=== PATIENT | female | born 1940 | race Caucasian/White ===

== ENCOUNTER 2020-12-19 16:03 | Emergency (ER) | payer MEDICARE, SELFPAY ==
--- NOTE | 2020-12-19 16:08 | ED.GENADULT ---
HPI - General Adult General Chief complaint: Altered Mental Status Stated complaint: elevated blood sugar/confused Time Seen by Provider: 12/19/20 16:08 Source: patient, family and RN notes reviewed History of Present Illness HPI narrative: Patient is 80-year-old female who presents the urgent care with her son with complaints of increased confusion and elevated blood sugars. Son states that her last blood sugar check was 173 which is high for her . States that her morning check is normally in the 120 range. States that she was slightly more confused this morning than her normal self however patient does have a history of dementia. States that she may look a little bit more pale than normal today . States that she has had a decrease in fluid intake and has not eaten since breakfast this morning. Also reports of 2 episodes of vomiting that occurred earlier in the day. Patient is currently denying of any pains. Son denies of any complaints of pain from the patient. No other acute complaints. Son aware of the plan of care. Some parts of this dictation were generated by voice recognition software and may contain typographical and/or grammatical inaccuracies. Related Data Home Medications Medication Instructions Recorded Confirmed carbidopa-levodopa 25 - 100 tablet PO TID 12/19/20 12/19/20 donepezil 5 mg PO DAILY 12/19/20 12/19/20 metformin 1,000 mg PO BID 12/19/20 12/19/20 propranolol 60 mg PO DAILY 12/19/20 12/19/20 Allergies Allergy/AdvReac Type Severity Reaction Status Date / Time No Known Allergies Allergy Mild Verified 12/19/20 18:46 Review of Systems Review of Systems: CONSTITUTIONAL: Denies fever, chills, or sweats. EYES: Denies visual changes, redness, or discharge. ENT: Denies rhinorrhea, congestion, sore throat, or otalgia. CARDIOVASCULAR: Denies chest pain, palpitations, or edema. RESPIRATORY: Denies cough or dyspnea. GASTROINTESTINAL: Reports of decreased appetite and 2 episodes of vomiting GENITOURINARY: Denies dysuria or hematuria. SKIN: Denies rash or itching. MUSCULOSKELETAL: Denies back pain, joint pain, or myalgia. NEUROLOGIC: Denies headache, numbness, or weakness. Reports of increased confusion All other systems reviewed are negative, except as documented in HPI. PMFSH Comments At the time of my signature, I reviewed and agree with the nursing past medical, surgical, social, and family history. There is no relevant family history pertinent to the patient complaint. Exam Narrative: GENERAL: This is a well-nourished, well-developed patient, very flat affect HEAD: normocephalic, atraumatic. EYES: PERRL. Sclera clear/white. Vision is grossly intact. EARS: External ears normal NOSE: External nose normal with no obvious nasal discharge, nares without redness, no rhinorrhea. THROAT: Mucous membranes moist NECK: Neck supple CARDIOVASCULAR: Regular rate and rhythm RESPIRATORY: Clear to auscultation. Breath sounds equal bilaterally. No wheezes, rales, or rhonchi. GASTROINTESTINAL: Abdomen soft, mild distention. Bowel sounds are active. Guarding with palpation to the left upper quadrant SKIN: warm, intact with no suspicious lesions or rash, good texture and turgor. NEURO: awake, alert, and oriented to person, place and time. There were no obvious focal neurologic abnormalities. EXTREMITIES: No clubbing, cyanosis, or edema. No joint tenderness, effusion, or edema noted. Course Vital Signs Vital signs: Vital Signs Temperature 96.8 F L 12/19/20 16:37 Pulse Rate 54 L 12/19/20 16:37 Respiratory Rate 16 12/19/20 16:37 Blood Pressure 120/51 L 12/19/20 16:37 Pulse Oximetry 99 12/19/20 16:37 Temperature 96.8 F L 12/19/20 16:37 Pulse Rate 54 L 12/19/20 16:37 Respiratory Rate 16 12/19/20 16:37 Blood Pressure 120/51 L 12/19/20 16:37 Pulse Oximetry 99 12/19/20 16:37 Reviewed Transfer Transfered to: [place] Transportation: Other (Private car) Transfer rationale: Altered
[2020-12-19 16:18] LABS: Glucose Point of Care 172 mg/dl (65-105)
[2020-12-19 16:37] VITALS: BP 120/51; PULSE 54; RESP 16; TEMP 36; O2SAT 99
== END 2020-12-19 16:43 | disposition short-term general hospital (02) ==
PROVIDERS: Emergency Provider Nurse Practitioner Family; PCP Internal Medicine
DX: R41.82 Altered mental status, unspecified (principal); E11.9 Type 2 diabetes mellitus without complications; F03.90 Unspecified dementia, unspecified severity, without behavioral disturbance, psychotic disturbance, mood disturbance, and anxiety
CPT/HCPCS: 82948; 99203; G0463

== ENCOUNTER 2020-12-19 17:07 | Inpatient (IN) | payer MEDICARE, SELFPAY ==
[2020-12-19] VITALS (37 sets, daily range): BP systolic 97–166; BP diastolic 26–93; PULSE 74–98; RESP 12–27; TEMP 37.3; O2SAT 71–100
--- NOTE | ~2020-12-19 | XR_ITS ---
XR ERCP DATE: 12/22/2020 15:08 INDICATION: Cholelithiasis, choledocholithiasis TECHNIQUE: 4 spot C-arm images during ERCP procedure .spot C-arm images 134.4 seconds fluoroscopy sri e 28.48 mGy COMPARISON: 12/19/2020 CT abdomen pelvis FINDINGS: There are multiple filling defects in the distal common bile duct consistent with choledoch olithiasis, with dilatation of the common bile duct. There is minimal contrast material reaching the duodenum due to distal common bile duct obstruction as a result of the choledocholithiasis. IMPRESSION: Choledocholithiasis with distal common bile duct high-grade obstruction Reviewed, dictated and finalized at [facility]. Reviewed, dictated and finalized at [facility]. IMPRESSION: Choledocholithiasis with distal common bile duct high-grade obstruc tion
--- NOTE | ~2020-12-19 | XR_ITS ---
EXAMINATION: XR cholangiogram surg 1st inj DATE: 12/23/2020 16:29 INDICATION: Cholelithiasis. TECHNIQUE: 140 fluoroscopic images of the right upper quadrant were obtained during intraoperative ch olangiography performed by the surgeon. I was not present in the operating room. Fluoroscopy exposure time was 26 seconds. COMPARISON: ERCP 12/22/2020, CT abdomen and pelvis 12/19/2020 FINDINGS: The catheter is in the cystic duct. Initial images demonstrate an obstruction of the distal common bile duct. Subsequent images demonstrate relief of the obstruction with passage of contrast t o the duodenum. The common bile duct demonstrate undulation of the dexter with a thin intraluminal fla p, likely secondary to inflammation, adherent sludge, and surgical change from ERCP. An elongated, ir regularly-shaped filling defect in the distal common hepatic duct changes shape and is likely sludge. IMPRESSION: 1. No specific evidence of residual choledocholithiasis. Reviewed, dictated and finalized at [facility].
--- NOTE | ~2020-12-19 | CT_ITS ---
EXAMINATION: CT abdomen pelvis w con DATE: 12/19/2020 20:21 INDICATION: Nausea and vomiting TECHNIQUE: Computed tomography (CT) of the abdomen and pelvis was performed with 100 mL Omnipaque-350 intravenous contrast. Automated exposure control and iterative reconstruction technique were employe d. The dose-length product was 717.82 mGy-cm. COMPARISON: None FINDINGS: Respiratory motion and minimal dependent atelectasis at the lung bases. Heart size is normal. Atheros clerotic coronary artery calcific location. No pericardial or pleural effusion. Small sliding-type hi atal hernia. A few peripherally calcified gallstones in the decompressed gallbladder which is without wall thickening or pericholecystic inflammatory change to suggest acute cholecystitis. The common bi le duct is however dilated to 9 mm and there is diffuse mild intrahepatic biliary ductal dilation. Th ere appears be a additional likely obstructing small partially calcified gallstone at the ampulla of the common bile duct. Spleen, pancreas, bilateral adrenal glands are normal. Small region of cortical scarring at the interpolar region of the left kidney. 8 mm right renal cyst. Bowels are normal. The appendix is not visualized. No pericecal inflammatory change to suggest acute appendicitis. Bladder i s normal. The uterus is not identified and has likely been surgically resected. No free intraperitone al gas or fluid. No pathologically enlarged abdominal or pelvic lymphadenopathy. Severe lumbar spondy losis. There are bridging osteophytes at multiple levels in the lower thoracic spine, consistent with diffuse idiopathic skeletal hyperostosis (DISH). IMPRESSION: 1. Cholelithiasis/choledocholithiasis with small obstructing stone at the distal common bile duct res ulting in mild intra and extra hepatic biliary ductal dilation. Correlate with liver function tests a nd consider ERCP. 2. Small sliding-type hiatal hernia. Reviewed, dictated and finalized at location [facility]. IMPRESSION: 1. Cholelithiasis/choledocholithiasis with small obstructing stone at the dista l common bile duct resulting in mild intra and extra hepatic biliary ductal dil ation. Correlate with liver function tests and consider ERCP. 2. Small sliding-type hiatal hernia.
--- NOTE | 2020-12-19 17:51 | ECG_ITS ---
Measurements Intervals [place] Rate: 79 P: SC: 0 QRS: 36 QRSD: 82 T: 123 QT: 384 QTc: 441 Interpretive Statements PROBABLY ATRIAL FIBRILLATION (BASELINE ARTIFACT) DELAYED PRECORDIAL R/S TRANSITION BASELINE ARTIFACT- I, II, III, AVR, AVL, AVF, V1-V6 ABNORMAL ECG Electronically Signed On 12-19-2020 20:20:31 CDT by Marco Palumbo D.O.
[2020-12-19 19:43] LABS: Basophils Percent Auto 0.1 % (0.2-1.2); Hematocrit 44.6 % (37.0-47.0); Hemoglobin 14.7 g/dL (12.0-15.0); Immature Granulocyte Absolute 0.03 K/mm3 (0.00-0.031); Immature Granulocyte Percent A 0.4 % (0-0.5); Lymphocytes Absolute Auto 0.25 K/mm3 (0.9-3.2); Lymphocytes Percent Auto 3.2 % (18.3-44.2); Mean Corpuscular Hemoglobin 30.1 pg (26-34); Mean Corpuscular Volume 91.2 fl (80-100); Mean Platelet Volume 10.2 fl (7.4-10.4); Monocytes Absolute Auto 0.2 K/mm3 (0.1-0.6); Monocytes Percent Auto 1.9 % (2.6-8.5); Neutrophils Absolute Auto 7.4 K/mm3 (1.3-6.7); Neutrophils Percent Auto 94.4 % (45.5-73.1); Platelet Count Result 170 k/mm3 (150-375); Red Blood Count 4.89 M/mm3 (4.2-5.4); Red Cell Distribution Width 12.8 % (11.5-14.5); White Blood Count 7.8 K/mm3 (4.5-10.0)
[2020-12-19] MEDS: SODIUM CHLORIDE 0.9% IV 500 ML 999 ML IV CONT (19:49)
[2020-12-19 19:57] LABS: Alanine Aminotransferase 327 U/L (4-35); Albumin Level 4.5 g/dL (3.5-5.1); Alkaline Phosphatase 75 U/L (38-126); Anion Gap 8 mmol/L (8-16); Bilirubin,Total 3.9 mg/dL (0.2-1.3); Blood Urea Nitrogen 16 mg/dL (7-17); Calcium 9.8 mg/dL (8.4-10.2); Carbon Dioxide 29 mmol/L (22-30); Chloride 102 mmol/L (98-107); Estimated CRCL calculation 56 ml/min; Estimated Glomerular Filt Rate > 60; Glucose 170 mg/dL (65-110); Potassium 4.8 mmol/L (3.4-5.0); Sodium 139 mmol/L (137-145)
[2020-12-19 20:02] LABS: Lactic Acid Reflex 3.5 mmol/L (0.7-2.1)
--- NOTE | 2020-12-19 20:11 | PC.NURSE ---
Pt off floor to radiology
[2020-12-19 20:13] LABS: Lipase 27 U/L (23-300)
--- NOTE | 2020-12-19 20:13 | ED.AMS ---
HPI - Altered Mental Status General Chief Complaint: Altered Mental Status Stated Complaint: altered mental status, vomiting Time Seen by Provider: 12/19/20 18:35 History of Present Illness HPI narrative: History primary team from family. 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 However this afternoon she seemed a little bit more altered and slow to respond to questions so they brought her in for evaluation. From reports she is normally alert and oriented to her self and recognizes family. Reports she still able to do that but just appears slower to recognize them. Family has not noted her to be in any pain or discomfort. Related Data Home Medications Medication Instructions Recorded Confirmed carbidopa-levodopa 25 - 100 tablet PO TID 12/19/20 12/19/20 donepezil 5 mg PO DAILY 12/19/20 12/19/20 metformin 1,000 mg PO BID 12/19/20 12/19/20 propranolol 60 mg PO DAILY 12/19/20 12/19/20 Allergies Allergy/AdvReac Type Severity Reaction Status Date / Time No Known Allergies Allergy Mild Verified 12/19/20 18:46 Review of Systems Review of Systems: ROS unobtainable: Yes unobtainable due to mental status Exam Narrative: GENERAL: Well-appearing, well-nourished, and in no acute distress. HEAD: Normocephalic, atraumatic. EYES: PERRLA and EOMI. ENT: Nares clear, no rhinorrhea or epistaxis. Mucous membranes moist. NECK: Supple. No masses. No JVD CHEST: Clear to auscultation. No respiratory distress. No wheezes rales or rhonchi HEART: Regular rate and rhythm. No murmur heard. Normal peripheral pulses. ABDOMEN: Soft, nontender, nondistended, normal active bowel sounds. EXTREMITIES: Normal range of motion. No edema. SKIN: Warm, dry, no rash. NEURO: No focal deficits. Alert and oriented to self PSYCH: Normal mood and affect. Course Consultations Consultation #1: Consult placed to surgery and GI given imaging findings and elevated LFT's Vital Signs Vital signs: Vital Signs Pulse Rate 82 12/19/20 18:28 Respiratory Rate 19 12/19/20 18:28 Blood Pressure 108/26 L 12/19/20 18:28 Temperature 37.3 C 12/19/20 18:34 Pulse Rate 93 12/19/20 21:00 Respiratory Rate 21 H 12/19/20 21:00 Blood Pressure 123/65 12/19/20 20:46 Pulse Oximetry 71 L 12/19/20 20:32 MDM - Altered Mental Status MDM Narrative Medical decision making narrative: Patient noted nausea vomiting change in baseline mental status. Patient overall looks well and is resting comfortably there are no appreciable focal areas of pain on abdominal exam her exam and history are limited due to patient's baseline dementia. Labs and imaging obtained notable for elevated LFTs and CT scan concerning for choledocholithiasis Case discussed with Dr. Worrell and Dr. Moore will follow along patient is admitted to hospitalist team for further intervention. Family comfortable with the admission plan Lab Data Result diagrams: 12/19/20 19:28 12/19/20 19:29 Labs: Lab Results 12/19/20 12/19/20 12/19/20 Range/Units 19:28 19:28 19:29 WBC 7.8 (4.5-10.0) K/mm3 RBC 4.89 (4.2-5.4) M/mm3 Hgb 14.7 (12.0-15.0) g/dL Hct 44.6 (37.0-47.0) % MCV 91.2 (80-100) fl MCH 30.1 (26-34) pg MCHC 33.0 (32-36) g/dl RDW 12.8 (11.5-14.5) % Plt Count 170 (150-375) k/mm3 MPV 10.2 (7.4-10.4) fl Immature Gran % (Auto) 0.4 (0-0.5) % Neut % (Auto) 94.4 H (45.5-73.1) % Lymph % (Auto) 3.2 L (18.3-44.2) % [place] % (Auto) 1.9 L (2.6-8.5) % Eos % (Auto) 0.0 (0-4.4) % Baso % (Auto) 0.1 L (0.2-1.2) % Lymph # (Auto) 0.25 L (0.9-3.2) K/mm3 [place] # (Auto) 0.2 (0.1-0.6) K/mm3 Eos # (Auto) 0.0 (0-0.3) K/mm3 Baso # (Auto) 0.0 (0.0-0.1) K/mm3 Abs Immat Gran (auto) 0.03 (0.00-0.031) K/
[2020-12-19 20:28] LABS: Troponin I < 0.012 ng/mL (0.000-0.034)
[2020-12-19 20:54] LABS: Add Urine Microscopic? YES; Appearance Urine Clear (Clear); Bilirubin Urine Negative (Negative); Blood Urine Negative (Negative); Color Urine Yellow (Yellow); Glucose Urine UA Negative (Negative); Ketones Urine Trace mg/dL (Negative); Leukocyte Esterase Ur Negative LEU/UL (Negative); Mucus Urine Rare /lpf; Nitrate Urine Negative (Negative); Protein Urine Negative (Negative); RBC Urine 0-2 /hpf (0-2); Specific Grav Ur 1.028 (1.001-1.035); WBC Urine 0-3 /hpf
[2020-12-19 21:29] LABS: Aspartate Amino Transferase 795 U/L (14-36)
[2020-12-19 22:41] LABS: Reflex Lactic Acid Yes or No Add Lactic
--- NOTE | 2020-12-19 23:35 | PC.NURSE ---
Called lab to add on additional orders
[2020-12-20 00:14] LABS: Prothrombin Time 13.3 Seconds (11.1-14.7)
[2020-12-20 00:15] LABS: Partial Thromboplastin Time 26.2 SECONDS (22.3-36.8)
--- NOTE | 2020-12-20 00:20 | ADMGEN ---
This patient, Rosanne Church, was admitted to Medical Room 344-01. Patient/family oriented to hospital policies and general routines including ID bracelet, bed and alarms, visiting hours, pain management, procedures, bathroom and other care routines, personal items, smoking policy, room service/diet, and visiting hours. Information on how to activate the Rapid Response Team has been discussed. Patient/Family are encouraged to report perceived risks to care and to ask questions if they do not understand what they are told or what they should do.
[2020-12-20 00:27] LABS: Lactic Acid 2.8 mmol/L (0.7-2.1)
[2020-12-20] MEDS: SODIUM CHLORIDE 0.9% IV 1,000 ML 125 ML IV CONT ×3 (00:35→17:22)
[2020-12-20 00:37] VITALS: BP 130/53; PULSE 83; RESP 18; TEMP 36.2; O2SAT 97; BMI 24.3
[2020-12-20 05:25] VITALS: BP 128/46; PULSE 64; RESP 16; TEMP 36.1; O2SAT 97
--- NOTE | 2020-12-20 05:28 | PM.IMHP ---
H&P: HPI History of Present Illness Date/Time: 12/20/20 05:28 Chief Complaint: vomiting confusion Narrative: this is 80-year-old female with past medical history of dementia presented per family with overall decreased appetite over sometime along with an episode of vomiting that started yesterday and was also noted to be altered and slow to respond. With her underlying dementia see normally is alert and oriented to self and recognizes family. She was able to do that for her but however noted to be slower to respond and hence was brought in for evaluation. There is no history of noted abdominal discomforted and the patient. Patient herself is confused and not able to provide any history to me. Most of the history is taken from the medical records family is not present at the time of my evaluation. In the ER C was noted to be in no acute distress with stable vitals. Laboratory evaluation were unremarkable except for lactic acidosis of 3.5 and elevated AST ALT at 795 and 327 respectively a [place] phosphorus and noted to be normal however total bilirubin is elevated at 3.9 she was started on IV hydration in the ER. A CT scan of the abdomen and pelvis was done which showed cholelithiasis and choledocholithiasis with small obstructing stone at the distal common bile duct resulting in mild intra nap extrahepatic biliary duct dilatation. She is admitted for further evaluation and management of this. Gastroenterology has been consulted from the ER and is planned to have an ERCP. General surgery has also been consulted for her cholelithiasis. Review of Systems Review of Systems: ROS unobtainable: Yes unobtainable due to medical condition and unobtainable due to mental status [facility] Family History Family History (Updated 12/20/20 @ 01:17 by Zulema Crespo RN) Other Unknown family medical history Social History Social History Smoking status: Never smoker Alcohol intake: former Drinks per week: 2 Substance use: never Spiritual care concerns: No Meds Home Medications and Allergies Home Medications Medication Instructions Recorded Confirmed Type carbidopa-levodopa 25 - 100 tablet PO TID 12/19/20 12/20/20 History donepezil 5 mg PO DAILY 12/19/20 12/20/20 History metformin 1,000 mg PO BID 12/19/20 12/20/20 History propranolol 60 mg PO DAILY 12/19/20 12/20/20 History Allergies Allergy/AdvReac Type Severity Reaction Status Date / Time No Known Allergies Allergy Mild Verified 12/19/20 18:46 Vital Signs Vital Signs - 24 hr 12/19/20 18:28 12/19/20 18:32 12/19/20 18:34 Temperature 99.1 F Pulse Rate 82 78 75 Respiratory Rate 19 22 H 24 H Blood Pressure 108/26 L 110/28 L 123/44 L Pulse Oximetry 97 94 12/19/20 18:40 12/19/20 18:45 12/19/20 18:47 Temperature Pulse Rate 78 83 79 Respiratory Rate 23 H 27 H 23 H Blood Pressure 123/44 L 109/36 L Pulse Oximetry 98 99 12/19/20 19:09 12/19/20 19:19 12/19/20 19:30 Temperature Pulse Rate 76 75 74 Respiratory Rate 21 H 22 H 18 Blood Pressure Pulse Oximetry 12/19/20 19:45 12/19/20 20:00 12/19/20 20:02 Temperature Pulse Rate 79 79 83 Respiratory Rate 25 H 22 H 25 H Blood Pressure 132/66 131/93 H Pulse Oximetry 100 100 12/19/20 20:21 12/19/20 20:23 12/19/20 20:30 Temperature Pulse Rate 98 96 94 Respiratory Rate 25 H 25 H Blood Pressure 166/82 H Pulse Oximetry 84 L 97 81 L 12/19/20 20:32 12/19/20 20:45 12/19/20 20:46 Temperature Pulse Rate 95 93 95 Respiratory Rate 19 20 26 H Blood Pressure 112/87 123/65 Pulse Oximetry 71 L 12/19/20 21:00 12/19/20 21:02 12/19/20 21:15 Temperature Pulse Rate 93 90 89 Respiratory Rate 21 H 19 25 H Blood Pressure 103/70 Pulse Oximetry 12/19/20 21:16 12/19/20 21:30 12/19/20 21:31 Temperature Pulse Rate 90 88 90 Respiratory Rate 23 H 24 H 25 H Blood Pressure 111/72 117/61 Pulse Oximetry
[2020-12-20 08:32] VITALS: PULSE 82
[2020-12-20] MEDS: CARBIDOPA/LEVODOPA 25/100 MG TABLET 1 TABLET PO ×3 (08:32→17:18)
[2020-12-20] MEDS: PROPRANOLOL HCL 60 MG CAPSULE CR PO (08:32)
[2020-12-20] MEDS: DONEPEZIL HCL 5 MG TABLET PO (08:32)
[2020-12-20 08:50] LABS: Glucose Point of Care 188 mg/dl (65-105)
--- NOTE | 2020-12-20 09:07 | PM.CNGS ---
Assessment and Plan Assessment and plan (1) Choledocholithiasis: Onset Date: ~12/2020 Code(s): K80.50 - Calculus of bile duct without cholangitis or cholecystitis without obstruction Status: Acute Assessment and Plan: This appears to be a patient's main reason for The changes listed in the note above. CT scan in the emergency room showed what appears to be a small stone stuck at the ampulla of Vater. Therefore, will await GI evaluation and if ERCP successful consider laparoscopic cholecystectomy, possible intraoperative cholangiogram, possible open cholecystectomy if Medicine finds the patient safe to undergo general anesthesia. Await repeat EKG regarding whether not atrial fibrillation is an appropriate diagnosis. Await results of GI consultation and possible ERCP I will discuss possible surgical intervention with the family once they are here.( Had a thorough discussion with the patient's son this date regarding the risks, benefits, and possible complications of a laparoscopic cholecystectomy with intraoperative cholangiogram and possible open cholecystectomy. I provided him with some liver tear from the office regarding the surgeries and a diet which I would want her to follow for 1 week after surgery. He states that he talked with Dr. Khurram griffin today and ERCP is planned for Tuesday. There are 4 I will work on Tuesday to try to schedule her for a slot to do a laparoscopic cholecystectomy on Tuesday if everything goes well with ERCP. He wanted to proceed in that manner and appreciated our work). (2) Cholelithiasis: Onset Date: ~12/2020 Code(s): K80.20 - Calculus of gallbladder without cholecystitis without obstruction Status: Acute Assessment and Plan: Noted on CT scan of the abdomen pelvis done in the ED 12/19. (3) Nausea & vomiting: Onset Date: ~12/2020 Qualifiers: Vomiting Intractability: non-intractable Vomiting type: unspecified Qualified Code(s): R11.2 - Nausea with vomiting, unspecified Code(s): R11.2 - Nausea with vomiting, unspecified Status: Acute Assessment and Plan: now resolved since the patient is NPO if doing well okay with surgery to try clear liquids until ERCP is planned (4) Elevated LFTs: Onset Date: Unknown Code(s): R79.89 - Other specified abnormal findings of blood chemistry Status: Acute Assessment and Plan: ordered repeat BMP and hepatic panel for tomorrow a.m.. ( GI may want earlier but will leave it up to them ). lipase was normal so no apparent pancreatitis related to the stone at the ampulla. (5) Advanced dementia: Onset Date: Unknown Code(s): F03.90 - Unspecified dementia without behavioral disturbance Status: Acute Assessment and Plan: Will discuss patient's wishes with POA/family when available. (6) Tremor: Onset Date: Unknown Code(s): R25.1 - Tremor, unspecified Status: Acute Assessment and Plan: as per hospitalist's recommendations. History of Present Illness Consult details Consult date: 12/20/20 Reason for consult: gallstones Requesting physician: Randal Molina MD Narrative: This pt. is 80-year-old White female with a past medical history of dementia who presented per family request in the [place] ED on 12/19 with overall decreased appetite over sometime, along with an episode of vomiting that started the day before, and it was also noted that she has some element of altered mentation and was slow to respond compared to her normal. With her underlying dementia she is normally alert and oriented to self and recognizes family. She was able to do that for them, but was noted to be slower to respond than usual and hence was brought in for evaluation. There is no history noted of prioir abdominal discomfort. Patient herself is confused and not able to provide any accurate history to me although she is pleasan
--- NOTE | 2020-12-20 13:21 | WPDGICN ---
Assessment and Plan Assessment and plan (1) Choledocholithiasis: Onset Date: ~12/2020 Code(s): K80.50 - Calculus of bile duct without cholangitis or cholecystitis without obstruction Status: Acute Assessment and Plan: she will need ERCP to remove bile duct stone, son agreeable. Will proceed Tuesday on iv antibiotic because she was symptomatic with elevated liver enzymes ok to give CL diet, she is feeling better now (2) Elevated LFTs: Onset Date: Unknown Code(s): R79.89 - Other specified abnormal findings of blood chemistry Status: Acute Assessment and Plan: trend liver enzymes surgery on board, will need lap yadira after ercp (3) Nausea & vomiting: Onset Date: ~12/2020 Qualifiers: Vomiting Intractability: non-intractable Vomiting type: unspecified Qualified Code(s): R11.2 - Nausea with vomiting, unspecified Code(s): R11.2 - Nausea with vomiting, unspecified Status: Acute Assessment and Plan: medical treatment (4) Advanced dementia: Onset Date: Unknown Code(s): F03.90 - Unspecified dementia without behavioral disturbance Status: Acute (5) Acute encephalopathy: Code(s): G93.40 - Encephalopathy, unspecified Status: Acute Assessment and Plan: she was more confused, apparently back to baseline now (6) Tremor: Onset Date: Unknown Code(s): R25.1 - Tremor, unspecified Status: Acute GI Consult Note Consult date/time: 12/20/20 13:21 Reason for consult: choledocholithiasis, n/v, cholecystitis HPI: Rosanne Church is a 80 year old female with history of dementia brought here by family after they noticed lack of appetite with nausea and vomiting, also more lethargic than usual (normally is alert and oriented to self and recognizes family). Son is here at bedside and helping with history. Er evaluation with elevated lactic acidosis of 3.5, transaminitis 300-700's [address] scan of the abdomen and pelvis reviewed that showed cholelithiasis and choledocholithiasis with small obstructing stone at the distal common bile duct resulting in mild intra nap extrahepatic biliary duct dilatation. She was started on iv antibiotics, hydrated and admitted to floor. She is comfortable now, no abdominal pain. Surgery on board. Review of Systems Constitutional: Constitutional: Denies chills Eyes: Eyes: Reports no additional eye complaints ENT: Reports Normal hearing present Cardiovascular: Cardiovascular: Denies chest pain Respiratory: Respiratory: Denies cough Gastrointestinal: Gastrointestinal: Reports abdominal pain, Reports bloating, Reports nausea and Reports vomiting Genitourinary: Genitourinary: Denies hematuria Musculoskeletal: Musculoskeletal: Denies neck pain Integumentary/Breasts: Skin/Breast: Denies dry skin Neurologic: Reports confusion Psychiatric: Psychiatric: Reports confusion [facility] Family History Family History Other Unknown family medical history Social History Social History Smoking status: Never smoker Alcohol intake: former Drinks per week: 2 Substance use: never Spiritual care concerns: No Meds Home Medications and Allergies Home Medications Medication Instructions Recorded Confirmed Type carbidopa-levodopa 25 - 100 tablet PO TID 12/19/20 12/20/20 History donepezil 5 mg PO DAILY 12/19/20 12/20/20 History metformin 1,000 mg PO BID 12/19/20 12/20/20 History propranolol 60 mg PO DAILY 12/19/20 12/20/20 History Allergies Allergy/AdvReac Type Severity Reaction Status Date / Time No Known Allergies Allergy Mild Verified 12/19/20 18:46 Vital Signs Vital Signs - 24 hr 12/19/20 18:28 12/19/20 18:32 12/19/20 18:34 Temperature 99.1 F Pulse Rate 82 78 75 Respiratory Rate 19 22 H 24 H Blood Pressure 108/26 L 110/28
[2020-12-20 14:00] VITALS: BP 117/101; PULSE 72; RESP 16; TEMP 36.1; O2SAT 97
[2020-12-20 16:47] LABS: Glucose Point of Care 137 mg/dl (65-105)
--- NOTE | 2020-12-20 17:21 | P.PNIM_ITS ---
Progress Note: A&P Assessment and Plan (1) Sepsis: Code(s): A41.9 - Sepsis, unspecified organism Status: Acute Assessment and Plan: * Sepsis from infection * Source of infection from gallbladder * Vital signs upon admission 36.0c, HR 54, RR 16, BP 120/51 * WBC 7.8, lactic acid 3.5 repeat lactic acid 2.8 * ABD/PEL CT cholelithiasis with obstructing stone * 1 L normal saline given in the ED, normal saline 125 mils an hour * Blood cultures preliminary report reveals Gram-negative bacilli * Zosyn 3.375 q.6h IV * Supportive care (2) Choledocholithiasis: Onset Date: ~12/2020 Code(s): K80.50 - Calculus of bile duct without cholangitis or cholecystitis without obstruction Status: Acute Assessment and Plan: * CT showed a common bile duct of 9 mm * obstructing stone seen in the bile duct * GI consulted thank you for recommendations * general surgery consulted thank you for recommendations * ERCP * cholecystectomy maybe needed * Zosyn 3.375mg IV Q6hr (3) Nausea & vomiting: Onset Date: ~12/2020 Qualifiers: Vomiting Intractability: non-intractable Vomiting type: unspecified Qualified Code(s): R11.2 - Nausea with vomiting, unspecified Code(s): R11.2 - Nausea with vomiting, unspecified Status: Acute Assessment and Plan: * seems to be resolved as patient is eating a clear liquid tray and tolerating it (4) Elevated LFTs: Onset Date: Unknown Code(s): R79.89 - Other specified abnormal findings of blood chemistry Status: Acute Assessment and Plan: * AST 795 ALT 327 bilirubin is 3.9 * CT shows cholelithiasis with that obstructing stone * GI consulted (5) Cholelithiasis: Onset Date: ~12/2020 Code(s): K80.20 - Calculus of gallbladder without cholecystitis without obstruction Status: Acute Assessment and Plan: * ERCP planned for Tuesday * cholecystectomy planned to follow * (6) Acute encephalopathy: Code(s): G93.40 - Encephalopathy, unspecified Status: Acute Assessment and Plan: * Acute encephalopathy with lactic acidosis suspect dehydration/underlying infection particularly with choledocholithiasis * suspected biliary source will panculture empiric Zosyn to be started the WBC count is within normal limit as high risk for cholangitis with biliary obstruction * white blood cell count is normal at 7.0 * lactic acid is elevated at 2.8 continue IV hydration (7) Advanced dementia: Onset Date: Unknown Code(s): F03.90 - Unspecified dementia without behavioral disturbance Status: Acute Assessment and Plan: * patient's baseline * continue donepezil 5mg po daily * monitor symptoms (8) Tremor: Onset Date: Unknown Code(s): R25.1 - Tremor, unspecified Status: Acute Assessment and Plan: * continue home carbidopa levodopa Subjective Date/time seen: 12/20/20 16:39 Interval history: this is 80-year-old female with past medical history of dementia presented per family with overall decreased appetite over sometime along with an episode of vomiting that started yesterday and was also noted to be altered and slow to respond. currently patient is resting in bed with no complaints. She denied abdominal pain nausea vomiting or decrease in appetite. patient's son is at
--- NOTE | 2020-12-20 17:21 | PM.IMPN ---
Progress Note: A&P Assessment and Plan (1) Sepsis: Code(s): A41.9 - Sepsis, unspecified organism Status: Acute Assessment and Plan: Sepsis from infection Source of infection from gallbladder Vital signs upon admission 36.0c, HR 54, RR 16, BP 120/51 WBC 7.8, lactic acid 3.5 repeat lactic acid 2.8 ABD/PEL CT cholelithiasis with obstructing stone 1 L normal saline given in the ED, normal saline 125 mils an hour Blood cultures preliminary report reveals Gram-negative bacilli Zosyn 3.375 q.6h IV Supportive care (2) Choledocholithiasis: Onset Date: ~12/2020 Code(s): K80.50 - Calculus of bile duct without cholangitis or cholecystitis without obstruction Status: Acute Assessment and Plan: CT showed a common bile duct of 9 mm obstructing stone seen in the bile duct GI consulted thank you for recommendations general surgery consulted thank you for recommendations ERCP cholecystectomy maybe needed Zosyn 3.375mg IV Q6hr (3) Nausea & vomiting: Onset Date: ~12/2020 Qualifiers: Vomiting Intractability: non-intractable Vomiting type: unspecified Qualified Code(s): R11.2 - Nausea with vomiting, unspecified Code(s): R11.2 - Nausea with vomiting, unspecified Status: Acute Assessment and Plan: seems to be resolved as patient is eating a clear liquid tray and tolerating it (4) Elevated LFTs: Onset Date: Unknown Code(s): R79.89 - Other specified abnormal findings of blood chemistry Status: Acute Assessment and Plan: AST 795 ALT [address] shows cholelithiasis with that obstructing stone GI consulted (5) Cholelithiasis: Onset Date: ~12/2020 Code(s): K80.20 - Calculus of gallbladder without cholecystitis without obstruction Status: Acute Assessment and Plan: ERCP planned for Tuesday cholecystectomy planned to follow (6) Acute encephalopathy: Code(s): G93.40 - Encephalopathy, unspecified Status: Acute Assessment and Plan: Acute encephalopathy with lactic acidosis suspect dehydration/underlying infection particularly with choledocholithiasis suspected biliary source will panculture empiric Zosyn to be started the WBC count is within normal limit as high risk for cholangitis with biliary obstruction white blood cell count is normal at 7.0 lactic acid is elevated at 2.8 continue IV hydration (7) Advanced dementia: Onset Date: Unknown Code(s): F03.90 - Unspecified dementia without behavioral disturbance Status: Acute Assessment and Plan: patient's baseline continue donepezil 5mg po daily monitor symptoms (8) Tremor: Onset Date: Unknown Code(s): R25.1 - Tremor, unspecified Status: Acute Assessment and Plan: continue home carbidopa levodopa Subjective Date/time seen: 12/20/20 16:39 Interval history: this is 80-year-old female with past medical history of dementia presented per family with overall decreased appetite over sometime along with an episode of vomiting that started yesterday and was also noted to be altered and slow to respond. currently patient is resting in bed with no complaints. She denied abdominal pain nausea vomiting or decrease in appetite. patient's son is at bedside and states that patient did have couple episodes of vomiting last night and got lethargic and weak before coming in. At this time patient is resting in bed talking and smiling. Of review of systems is unable to be obtained due to patient's mental status. Review of Systems Review of Systems: ROS unobtainable: Yes unobtainable due to mental status Exam Const: General: cooperative, healthy appearing, no acute distress, well developed, alert and awake Nutritional Appearance: well nourished Orientation/consciousness: oriented to
[2020-12-20 20:29] VITALS: BP 116/48; PULSE 68; RESP 18; TEMP 36.1; O2SAT 97
[2020-12-21] MEDS: SODIUM CHLORIDE 0.9% IV 1,000 ML 125 ML IV CONT ×3 (00:24→17:12)
[2020-12-21 05:53] VITALS: BP 123/50; PULSE 57; RESP 16; TEMP 36; O2SAT 97
[2020-12-21 06:14] LABS: Basophils Percent Auto 0.4 % (0.2-1.2); Eosinophils Absolute Auto 0.1 K/mm3 (0-0.3); Eosinophils Percent Auto 1.4 % (0-4.4); Hematocrit 35.2 % (37.0-47.0); Hemoglobin 11.7 g/dL (12.0-15.0); Immature Granulocyte Absolute 0.05 K/mm3 (0.00-0.031); Immature Granulocyte Percent A 0.7 % (0-0.5); Immature Platelet Fraction Pct 3.7 % (0.9-11.2); Lymphocytes Absolute Auto 0.58 K/mm3 (0.9-3.2); Lymphocytes Percent Auto 8.3 % (18.3-44.2); Mean Corpuscular HGB Conc 33.2 g/dl (32-36); Mean Corpuscular Hemoglobin 30.1 pg (26-34); Mean Corpuscular Volume 90.5 fl (80-100); Mean Platelet Volume 10.6 fl (7.4-10.4); Monocytes Absolute Auto 0.5 K/mm3 (0.1-0.6); Monocytes Percent Auto 6.8 % (2.6-8.5); Neutrophils Absolute Auto 5.8 K/mm3 (1.3-6.7); Neutrophils Percent Auto 82.4 % (45.5-73.1); Platelet Count Result 101 k/mm3 (150-375); Red Blood Count 3.89 M/mm3 (4.2-5.4)
[2020-12-21 06:43] LABS: Alanine Aminotransferase 90 U/L (4-35); Albumin Level 2.7 g/dL (3.5-5.1); Alkaline Phosphatase 47 U/L (38-126); Anion Gap 4 mmol/L (8-16); Aspartate Amino Transferase 167 U/L (14-36); Bilirubin Direct 0.4 mg/dL (0-0.3); Bilirubin,Total 3.6 mg/dL (0.2-1.3); Blood Urea Nitrogen 10 mg/dL (7-17); Calcium 8.1 mg/dL (8.4-10.2); Carbon Dioxide 24 mmol/L (22-30); Chloride 104 mmol/L (98-107); Estimated CRCL calculation 56 ml/min; Estimated Glomerular Filt Rate > 60; Glucose 111 mg/dL (65-110); Lipase < 10 U/L (23-300); Potassium 3.3 mmol/L (3.4-5.0); Sodium 132 mmol/L (137-145)
--- NOTE | 2020-12-21 07:47 | PC.NURSE ---
Brandon Cano [employer] notified of positive blood cultures of gram negative baccili in both bottles
[2020-12-21 08:35] VITALS: PULSE 62
[2020-12-21] MEDS: DONEPEZIL HCL 5 MG TABLET PO (08:35)
[2020-12-21] MEDS: PROPRANOLOL HCL 60 MG CAPSULE CR PO (08:35)
[2020-12-21] MEDS: CARBIDOPA/LEVODOPA 25/100 MG TABLET 1 TABLET PO ×3 (08:35→17:11)
--- NOTE | 2020-12-21 10:04 | P.PNIM_ITS ---
Progress Note: A&P Assessment and Plan (1) Sepsis: Code(s): A41.9 - Sepsis, unspecified organism Status: Acute Assessment and Plan: * Sepsis from infection * Source of infection from gallbladder * Vital signs upon admission 36.0c, HR 54, RR 16, BP 120/51 * WBC 7.8, lactic acid 3.5 repeat lactic acid 2.8 * ABD/PEL CT cholelithiasis with obstructing stone * 1 L normal saline given in the ED, normal saline 125 mils an hour * Blood cultures preliminary report reveals Gram-negative bacilli-awaiting susceptibility report * Zosyn 3.375 q.6h IV * Supportive care (2) Choledocholithiasis: Onset Date: ~12/2020 Code(s): K80.50 - Calculus of bile duct without cholangitis or cholecystitis without obstruction Status: Acute Assessment and Plan: * CT showed a common bile duct of 9 mm * obstructing stone seen in the bile duct * GI consulted thank you for recommendations * general surgery consulted thank you for recommendations * ERCP * cholecystectomy maybe needed * Zosyn 3.375mg IV Q6hr (3) Nausea & vomiting: Onset Date: ~12/2020 Qualifiers: Vomiting Intractability: non-intractable Vomiting type: unspecified Qualified Code(s): R11.2 - Nausea with vomiting, unspecified Code(s): R11.2 - Nausea with vomiting, unspecified Status: Acute Assessment and Plan: * seems to be resolved as patient is eating a clear liquid tray and tolerating it (4) Elevated LFTs: Onset Date: Unknown Code(s): R79.89 - Other specified abnormal findings of blood chemistry Status: Acute Assessment and Plan: * AST 167 ALT 90 bilirubin is 3.6 * CT shows cholelithiasis with that obstructing stone * GI consulted (5) Cholelithiasis: Onset Date: ~12/2020 Code(s): K80.20 - Calculus of gallbladder without cholecystitis without obstruction Status: Acute Assessment and Plan: * ERCP planned for Tuesday * cholecystectomy planned to follow (6) Acute encephalopathy: Code(s): G93.40 - Encephalopathy, unspecified Status: Acute Assessment and Plan: * Acute encephalopathy with lactic acidosis suspect dehydration/underlying infection particularly with choledocholithiasis * suspected biliary source will panculture empiric Zosyn to be started the WBC count is within normal limit as high risk for cholangitis with biliary obstruction * white blood cell count is normal at 7.0 * lactic acid is elevated at 2.8 continue IV hydration NS at 125 ml/hr (7) Advanced dementia: Onset Date: Unknown Code(s): F03.90 - Unspecified dementia without behavioral disturbance Status: Acute Assessment and Plan: * patient's baseline * continue donepezil 5mg po daily * monitor symptoms (8) Tremor: Onset Date: Unknown Code(s): R25.1 - Tremor, unspecified Status: Acute Assessment and Plan: * continue home carbidopa levodopa Subjective Date/time seen: 12/21/20 0815 Interval history: Patient is a pleasant 80-year-old who presented the ED with a GI complaint. Today patient looks good. She does say yes to everything so a review of systems was unable to be obtained. However patient did say that she had no abdominal pain or chest pain. With palpation patient did not grimace or show signs of pain. Deborah
--- NOTE | 2020-12-21 10:04 | PM.IMPN ---
Progress Note: A&P Assessment and Plan (1) Sepsis: Code(s): A41.9 - Sepsis, unspecified organism Status: Acute Assessment and Plan: Sepsis from infection Source of infection from gallbladder Vital signs upon admission 36.0c, HR 54, RR 16, BP 120/51 WBC 7.8, lactic acid 3.5 repeat lactic acid 2.8 ABD/PEL CT cholelithiasis with obstructing stone 1 L normal saline given in the ED, normal saline 125 mils an hour Blood cultures preliminary report reveals Gram-negative bacilli-awaiting susceptibility report Zosyn 3.375 q.6h IV Supportive care (2) Choledocholithiasis: Onset Date: ~12/2020 Code(s): K80.50 - Calculus of bile duct without cholangitis or cholecystitis without obstruction Status: Acute Assessment and Plan: CT showed a common bile duct of 9 mm obstructing stone seen in the bile duct GI consulted thank you for recommendations general surgery consulted thank you for recommendations ERCP cholecystectomy maybe needed Zosyn 3.375mg IV Q6hr (3) Nausea & vomiting: Onset Date: ~12/2020 Qualifiers: Vomiting Intractability: non-intractable Vomiting type: unspecified Qualified Code(s): R11.2 - Nausea with vomiting, unspecified Code(s): R11.2 - Nausea with vomiting, unspecified Status: Acute Assessment and Plan: seems to be resolved as patient is eating a clear liquid tray and tolerating it (4) Elevated LFTs: Onset Date: Unknown Code(s): R79.89 - Other specified abnormal findings of blood chemistry Status: Acute Assessment and Plan: AST 167 ALT [address] shows cholelithiasis with that obstructing stone GI consulted (5) Cholelithiasis: Onset Date: ~12/2020 Code(s): K80.20 - Calculus of gallbladder without cholecystitis without obstruction Status: Acute Assessment and Plan: ERCP planned for Tuesday cholecystectomy planned to follow (6) Acute encephalopathy: Code(s): G93.40 - Encephalopathy, unspecified Status: Acute Assessment and Plan: Acute encephalopathy with lactic acidosis suspect dehydration/underlying infection particularly with choledocholithiasis suspected biliary source will panculture empiric Zosyn to be started the WBC count is within normal limit as high risk for cholangitis with biliary obstruction white blood cell count is normal at 7.0 lactic acid is elevated at 2.8 continue IV hydration NS at 125 ml/hr (7) Advanced dementia: Onset Date: Unknown Code(s): F03.90 - Unspecified dementia without behavioral disturbance Status: Acute Assessment and Plan: patient's baseline continue donepezil 5mg po daily monitor symptoms (8) Tremor: Onset Date: Unknown Code(s): R25.1 - Tremor, unspecified Status: Acute Assessment and Plan: continue home carbidopa levodopa Subjective Date/time seen: 12/21/2015 Interval history: Patient is a pleasant 80-year-old who presented the ED with a GI complaint. Today patient looks good. She does say yes to everything so a review of systems was unable to be obtained. However patient did say that she had no abdominal pain or chest pain. With palpation patient did not grimace or show signs of pain. Patient has been able to tolerated diet. Review of Systems Review of Systems: ROS unobtainable: Yes unobtainable due to mental status Exam Const: General: cooperative, healthy appearing, no acute distress, well developed, alert, awake and confusion Nutritional Appearance: well nourished Orientation/consciousness: oriented to person, oriented to place and confusion Limitations: no limitations HENMT: Head: normal to inspection Ears: hearing grossly normal bilaterally General nose exam: Normal external nose present Mouth: Yes Normal oral and palata
--- NOTE | 2020-12-21 10:07 | WPDGIPROGNO ---
Progress Note: A&P Assessment and Plan (1) Choledocholithiasis: Onset Date: ~12/2020 Code(s): K80.50 - Calculus of bile duct without cholangitis or cholecystitis without obstruction Status: Acute Assessment and Plan: ercp tomorrow to remove stone then will need lap yadira (2) Sepsis: Code(s): A41.9 - Sepsis, unspecified organism Status: Acute Assessment and Plan: improved and treated medically (3) Nausea & vomiting: Onset Date: ~12/2020 Qualifiers: Vomiting Intractability: non-intractable Vomiting type: unspecified Qualified Code(s): R11.2 - Nausea with vomiting, unspecified Code(s): R11.2 - Nausea with vomiting, unspecified Status: Acute (4) Elevated LFTs: Onset Date: Unknown Code(s): R79.89 - Other specified abnormal findings of blood chemistry Status: Acute Assessment and Plan: persistent due to bile duct stone and cholelithiasis (5) Acute encephalopathy: Code(s): G93.40 - Encephalopathy, unspecified Status: Acute Assessment and Plan: at baseline now (6) Advanced dementia: Onset Date: Unknown Code(s): F03.90 - Unspecified dementia without behavioral disturbance Status: Acute (7) Cholelithiasis: Onset Date: ~12/2020 Code(s): K80.20 - Calculus of gallbladder without cholecystitis without obstruction Status: Acute Subjective Date/time seen: 12/21/20 10:07 Interval history: she is comfortable, pleasantly confused Review of Systems Review of Systems: All systems reviewed & are unremarkable except as noted in HPI and below Exam Const: General: comfortable and no acute distress HENMT: General nose exam: Normal nares present Eyes: Sclera: sclerae normal Neck: Neck: supple Resp: Auscultation: clear to auscultation bilaterally Cardio: Rate: regular rate GI: Inspection: non-distended GI Palp: Yes Soft to palpation, Yes Tenderness to palpation present (GI) (minimal tenderness epigastric, no rebound- unchanged) and No Guarding due to palpation present (GI) Auscultation: normal bowel sounds Skin: General skin exam: no rashes or lesions noted Neuro: Speech: normal speech Other: awake and alert to person but confused as usual. Fine tremors (chronic finding) Extrem: General: no edema Psych: Affect: No Hostile affect present Objective Data Vital Signs Vital Signs: Vital Signs - 24 hr 12/20/20 14:00 12/20/20 20:29 12/21/20 05:53 Temperature 96.9 F L 97.0 F L 96.8 F L Pulse Rate 72 68 57 L Respiratory Rate 16 18 16 Blood Pressure 117/101 H 116/48 L 123/50 L Pulse Oximetry 97 97 97 12/21/20 08:35 Temperature Pulse Rate 62 Respiratory Rate Blood Pressure Pulse Oximetry Intake/Output Intake/Output: Intake & Output 12/18/20 12/19/20 12/20/20 12/21/20 23:59 23:59 23:59 23:59 Intake Total 500 2630 2387 Output Total 500 300 400 Balance 0 2330 1987 Meds/Results Medications: Active Medications Generic Name Dose Route Start Last Admin Trade Name Freq PRN Reason Stop Dose Admin Carbidopa/Levodopa 1 tablet 12/20/20 08:00 12/21/20 08:35 Carbidopa/Levodopa 25/100 Mg Tablet PO 1 tablet TIDWM DARION Administration Donepezil HCl 5 mg 12/20/20 09:00 12/21/20 08:35 Donepezil Hcl 5 Mg Tablet PO 5 mg DAILY DARION Administration Fentanyl Citrate 50 mcg 12/19/20 21:27 Fentanyl Citrate Inj (*Crx) 100 Mcg/2 Ml Vial IV PUSH Q2H PRN Pain Rated 7-10 Sodium Chloride 1,000 mls @ 125 mls/hr 12/19/20 21:30 12/21/20 08:38 Normal Saline Iv IV CONT 125 mls/hr .Q8H DARION Administration Piperacillin/Tazobactam/Dextrose 3.375 gm in 50 mls @ 100 mls/hr 12/20/20 06:00 12/21/20 05:54 Zosyn 3.375 Gm/D5w 50ml Pm IVPB 100 mls/hr Q6H DARION Administration Ondansetron HCl 4 mg 12/19/20 21:27 Ondansetron Inj 4 Mg/2 Ml Vial IV PUSH Q4H PRN Nausea Propranolol HCl 60 mg 12/20/20 09
[2020-12-21] MEDS: POTASSIUM CHLORIDE 20 MEQ PACKET (FOR LIQUID) 40 MEQ PO (11:56)
[2020-12-21 14:00] VITALS: BP 106/43; PULSE 71; RESP 16; TEMP 35.8; O2SAT 99
[2020-12-21 20:22] VITALS: BP 130/61; PULSE 69; RESP 16; TEMP 36.4; O2SAT 98
--- NOTE | 2020-12-21 21:01 | PM.PNGS ---
Progress Note: A&P Assessment and Plan (1) Choledocholithiasis: Onset Date: ~12/2020 Code(s): K80.50 - Calculus of bile duct without cholangitis or cholecystitis without obstruction Status: Acute Assessment and Plan: This appears to be a patient's main reason for The changes listed in the note above. CT scan in the emergency room showed what appears to be a small stone stuck at the ampulla of Vater. Therefore, will await GI evaluation and if ERCP successful consider laparoscopic cholecystectomy, possible intraoperative cholangiogram, possible open cholecystectomy if Medicine finds the patient safe to undergo general anesthesia. Await repeat EKG regarding whether not atrial fibrillation is an appropriate diagnosis. Await results of GI consultation and possible ERCP I will discuss possible surgical intervention with the family once they are here.( Had a thorough discussion with the patient's son this date regarding the risks, benefits, and possible complications of a laparoscopic cholecystectomy with intraoperative cholangiogram and possible open cholecystectomy. I provided him with some liver tear from the office regarding the surgeries and a diet which I would want her to follow for 1 week after surgery. He states that he talked with Dr. Khurram Garcia today and ERCP is planned for Tuesday. Therefore, I will work on Tuesday to try to schedule her for a slot to do a laparoscopic cholecystectomy on Tuesday if everything goes well with ERCP. He wanted to proceed in that manner and appreciated our work). (2) Cholelithiasis: Onset Date: ~12/2020 Code(s): K80.20 - Calculus of gallbladder without cholecystitis without obstruction Status: Acute Assessment and Plan: Noted on CT scan of the abdomen pelvis done in the ED 12/19. (3) Nausea & vomiting: Onset Date: ~12/2020 Qualifiers: Vomiting Intractability: non-intractable Vomiting type: unspecified Qualified Code(s): R11.2 - Nausea with vomiting, unspecified Code(s): R11.2 - Nausea with vomiting, unspecified Status: Acute Assessment and Plan: now resolved since the patient is NPO if doing well okay with surgery to try clear liquids until ERCP is planned (4) Elevated LFTs: Onset Date: Unknown Code(s): R79.89 - Other specified abnormal findings of blood chemistry Status: Acute Assessment and Plan: ordered repeat BMP and hepatic panel for tomorrow a.m.. ( GI may want earlier but will leave it up to them ). lipase was normal so no apparent pancreatitis related to the stone at the ampulla. (5) Advanced dementia: Onset Date: Unknown Code(s): F03.90 - Unspecified dementia without behavioral disturbance Status: Acute Assessment and Plan: Will discuss patient's wishes with POA/family when available. (6) Tremor: Onset Date: Unknown Code(s): R25.1 - Tremor, unspecified Status: Acute Assessment and Plan: as per hospitalist's recommendations. Additional Plan Asked the nurse to relate to the hospitalist team that I would like to have an evaluation for medical clearance for general anesthesia. Time Spent With Patient Time with patient: less than 15 minutes Subjective Subjective Date/Time Seen: 12/21/20 21:01 Interval history: Patient lying in bed. Son at the bedside. He states that if it is felt the patient can come through general anesthesia they do believe she she would like to go ahead and have a laparoscopic cholecystectomy possible intraoperative cholangiogram possible open cholecystectomy the day following her ERCP which is planned for tomorrow by Dr. Worrell. Review of Systems Review of Systems: ROS unobtainable: Yes unobtainable due to mental status ENT: Reports Normal hearing present Neurologic: Reports Normal hearing present and Reports confusion Psychiatric: Psychiatric: Reports confusion Exam Const:
[2020-12-22] VITALS (13 sets, daily range): BP systolic 115–156; BP diastolic 48–72; PULSE 45–95; RESP 14–22; TEMP 35.6–36.2; O2SAT 96–100
--- NOTE | 2020-12-22 | ECHO_ITS ---
Patient Info Name: Rosanne Church Age: 80 years : 1940 Gender: Female Ht: 64 in Wt: 141 lbs BSA: 1.71 m2 HR: 78 bpm BP: 133 / 62 mmHg Heart Rhythm: Sinus Rhythm, Bradycardia Technical Quality: Fair Exam Date: 12/22/2020 10:23 AM Exam Location: [facility] Pulmonary Exam Room: 344 Patient Status: Inpatient Admit Date: 12/20/2020 Staff Ordering Physician: Jeffy Cano Supplemental Manager: Irene Menezes RDCS Attending Provider: Andrew Willett MD Referring Physician: Jerome WADE; Exam Type: CA echo doppler color flow Study Info Indications - arrythmia Complete two-dimensional, color flow and Doppler transthoracic echocardiogram is performed. Summary 1. Complete two-dimensional, color flow and Doppler transthoracic echocardiogram is performed. 2. Left ventricular chamber size, wall thickness, systolic and diastolic function are normal with no regional wall motion abnormalities with an estimated ejection fraction of >70%. 3. No pulmonary hypertension. 4. Dilated inferior vena cava with >50% collapse upon inspiration consistent with elevated right atrial pressure.. 5. There is mild aortic valve calcification without stenosis. 6. Bradycardia, probably sinus bradycardia, heart rate in the 50s. Left Ventricle Left ventricular chamber size, wall thickness, systolic and diastolic function are normal with no regional wall motion abnormalities with an estimated ejection fraction of >70%. Left ventricular chamber dimension is normal. Left ventricular systolic function is normal, estimated at >70%. There is no increased left ventricular wall thickness. Left ventricular septal wall motion is normal. The left ventricular diastolic function is normal. Right Ventricle Right ventricular chamber dimension is normal. Right ventricular systolic function is normal. Left Atria Left atrial chamber dimension is normal. Right Atria Right atrial chamber dimension is normal. Aortic Valve The aortic valve is trileaflet. There is no aortic valve sclerosis. There is no aortic valve stenosis. There is no aortic valve regurgitation. There is mild aortic valve calcification without stenosis. Pulmonic Valve The pulmonic valve is normal. There is no pulmonic valve stenosis. There is no pulmonic regurgitation. Mitral Valve The mitral valve has normal leaflets. There is no mitral valve stenosis. There is no mitral valve regurgitation. Tricuspid Valve No pulmonary hypertension. The tricuspid valve leaflets are normal. There is no significant tricuspid valve stenosis. There is trace tricuspid valve regurgitation. Pericardium/Pleural The pericardium appears normal. There is no pericardial effusion. Inferior Vena Cava Dilated inferior vena cava with >50% collapse upon inspiration consistent with elevated right atrial pressure.. Aorta The aortic root size at the sinus of Valsalva is normal. The prox ascending aorta size is normal. Left Ventricular Outflow Tract Name Value Normal LVOT 2D LVOT Diameter 2.0 cm LVOT Doppler LVOT Peak Gradient 5 mmHg
[2020-12-22] MEDS: SODIUM CHLORIDE 0.9% IV 1,000 ML 125 ML IV CONT ×3 (01:59→21:33)
[2020-12-22 08:14] LABS: Basophils Percent Auto 0.6 % (0.2-1.2); Eosinophils Absolute Auto 0.1 K/mm3 (0-0.3); Eosinophils Percent Auto 1.9 % (0-4.4); Hematocrit 36.2 % (37.0-47.0); Hemoglobin 11.9 g/dL (12.0-15.0); Immature Granulocyte Absolute 0.04 K/mm3 (0.00-0.031); Immature Granulocyte Percent A 0.8 % (0-0.5); Lymphocytes Absolute Auto 0.55 K/mm3 (0.9-3.2); Lymphocytes Percent Auto 10.7 % (18.3-44.2); Mean Corpuscular HGB Conc 32.9 g/dl (32-36); Mean Corpuscular Hemoglobin 30.4 pg (26-34); Mean Corpuscular Volume 92.6 fl (80-100); Mean Platelet Volume 10.9 fl (7.4-10.4); Monocytes Absolute Auto 0.4 K/mm3 (0.1-0.6); Monocytes Percent Auto 8.1 % (2.6-8.5); Neutrophils Percent Auto 77.9 % (45.5-73.1); Platelet Count Result 109 k/mm3 (150-375); Red Blood Count 3.91 M/mm3 (4.2-5.4); Red Cell Distribution Width 12.8 % (11.5-14.5); White Blood Count 5.2 K/mm3 (4.5-10.0)
[2020-12-22 09:03] LABS: Alanine Aminotransferase 123 U/L (4-35); Albumin Level 2.7 g/dL (3.5-5.1); Alkaline Phosphatase 62 U/L (38-126); Anion Gap 2 mmol/L (8-16); Aspartate Amino Transferase 71 U/L (14-36); Blood Urea Nitrogen 6 mg/dL (7-17); Calcium 7.7 mg/dL (8.4-10.2); Carbon Dioxide 22 mmol/L (22-30); Chloride 108 mmol/L (98-107); Estimated CRCL calculation 66 ml/min; Estimated Glomerular Filt Rate > 60; Glucose 118 mg/dL (65-110); Potassium 3.4 mmol/L (3.4-5.0); Sodium 132 mmol/L (137-145)
[2020-12-22] MEDS: PROPRANOLOL HCL 60 MG CAPSULE CR PO (10:02)
--- NOTE | 2020-12-22 10:15 | P.PNIM_ITS ---
Progress Note: A&P Assessment and Plan (1) Choledocholithiasis: Onset Date: ~12/2020 Code(s): K80.50 - Calculus of bile duct without cholangitis or cholecystitis without obstruction Status: Acute Assessment and Plan: * CT showed a common bile duct of 9 mm * obstructing stone seen in the bile duct * GI consulted thank you for recommendations * general surgery consulted thank you for recommendations * ERCP * cholecystectomy is to follow ERCP * Zosyn 3.375mg IV Q6hr Am obtaining an EKG and ECHO to be sure that she is surgery ready for the yadira. Looking at the EKG it really should have never been reported because it looks mostly artifact. I did have cardiology glance at it as well which the same conclusion was drawn. The repeat will hopefully give better insight. (2) Sepsis: Code(s): A41.9 - Sepsis, unspecified organism Status: Acute Assessment and Plan: * Sepsis from infection * Source of infection from gallbladder * Vital signs upon admission 36.0c, HR 54, RR 16, BP 120/51 * WBC 7.8, lactic acid 3.5 repeat lactic acid 2.8 * ABD/PEL CT cholelithiasis with obstructing stone * 1 L normal saline given in the ED, normal saline 125 mils an hour * Blood cultures preliminary report reveals Gram-negative bacilli-awaiting susceptibility report * Zosyn 3.375 q.6h IV * Supportive care (3) Nausea & vomiting: Onset Date: ~12/2020 Qualifiers: Vomiting Intractability: non-intractable Vomiting type: unspecified Qualified Code(s): R11.2 - Nausea with vomiting, unspecified Code(s): R11.2 - Nausea with vomiting, unspecified Status: Acute Assessment and Plan: * seems to be resolved as patient is eating a clear liquid tray and tolerating it (4) Elevated LFTs: Onset Date: Unknown Code(s): R79.89 - Other specified abnormal findings of blood chemistry Status: Acute Assessment and Plan: * AST 71 ALT 123 bilirubin is 2.0 * CT shows cholelithiasis with that obstructing stone * GI consulted (5) Cholelithiasis: Onset Date: ~12/2020 Code(s): K80.20 - Calculus of gallbladder without cholecystitis without obstruction Status: Acute Assessment and Plan: * ERCP planned for Tuesday * cholecystectomy planned to follow (6) Acute encephalopathy: Code(s): G93.40 - Encephalopathy, unspecified Status: Acute Assessment and Plan: * Acute encephalopathy with lactic acidosis suspect dehydration/underlying infection particularly with choledocholithiasis * suspected biliary source * Culture gram (-) basilli awaiting sensitivities * Zosyn started * white blood cell count is normal at 5.2 * continue IV hydration NS at 125 ml/hr (7) Advanced dementia: Onset Date: Unknown Code(s): F03.90 - Unspecified dementia without behavioral disturbance Status: Acute Assessment and Plan: * patient's baseline * continue donepezil 5mg po daily * monitor symptoms (8) Tremor: Onset Date: Unknown Code(s): R25.1 - Tremor, unspecified Status: Acute Assessment and Plan: * continue home carbidopa levodopa Subjective Date/time seen: 12/22/20 07:00 Interval history: Patient is a 80 year old female that is here for cholecystitis and obstructing gallstone. Today patient is A&O x 2
--- NOTE | 2020-12-22 10:15 | PM.IMPN ---
Progress Note: A&P Assessment and Plan (1) Choledocholithiasis: Onset Date: ~12/2020 Code(s): K80.50 - Calculus of bile duct without cholangitis or cholecystitis without obstruction Status: Acute Assessment and Plan: CT showed a common bile duct of 9 mm obstructing stone seen in the bile duct GI consulted thank you for recommendations general surgery consulted thank you for recommendations ERCP cholecystectomy is to follow ERCP Zosyn 3.375mg IV Q6hr Am obtaining an EKG and ECHO to be sure that she is surgery ready for the yadira. Looking at the EKG it really should have never been reported because it looks mostly artifact. I did have cardiology glance at it as well which the same conclusion was drawn. The repeat will hopefully give better insight. (2) Sepsis: Code(s): A41.9 - Sepsis, unspecified organism Status: Acute Assessment and Plan: Sepsis from infection Source of infection from gallbladder Vital signs upon admission 36.0c, HR 54, RR 16, BP 120/51 WBC 7.8, lactic acid 3.5 repeat lactic acid 2.8 ABD/PEL CT cholelithiasis with obstructing stone 1 L normal saline given in the ED, normal saline 125 mils an hour Blood cultures preliminary report reveals Gram-negative bacilli-awaiting susceptibility report Zosyn 3.375 q.6h IV Supportive care (3) Nausea & vomiting: Onset Date: ~12/2020 Qualifiers: Vomiting Intractability: non-intractable Vomiting type: unspecified Qualified Code(s): R11.2 - Nausea with vomiting, unspecified Code(s): R11.2 - Nausea with vomiting, unspecified Status: Acute Assessment and Plan: seems to be resolved as patient is eating a clear liquid tray and tolerating it (4) Elevated LFTs: Onset Date: Unknown Code(s): R79.89 - Other specified abnormal findings of blood chemistry Status: Acute Assessment and Plan: AST 71 ALT [address] shows cholelithiasis with that obstructing stone GI consulted (5) Cholelithiasis: Onset Date: ~12/2020 Code(s): K80.20 - Calculus of gallbladder without cholecystitis without obstruction Status: Acute Assessment and Plan: ERCP planned for Tuesday cholecystectomy planned to follow (6) Acute encephalopathy: Code(s): G93.40 - Encephalopathy, unspecified Status: Acute Assessment and Plan: Acute encephalopathy with lactic acidosis suspect dehydration/underlying infection particularly with choledocholithiasis suspected biliary source Culture gram (-) basilli awaiting sensitivities Zosyn started white blood cell count is normal at 5.2 continue IV hydration NS at 125 ml/hr (7) Advanced dementia: Onset Date: Unknown Code(s): F03.90 - Unspecified dementia without behavioral disturbance Status: Acute Assessment and Plan: patient's baseline continue donepezil 5mg po daily monitor symptoms (8) Tremor: Onset Date: Unknown Code(s): R25.1 - Tremor, unspecified Status: Acute Assessment and Plan: continue home carbidopa levodopa Subjective Date/time seen: 12/22/20 07:00 Interval history: Patient is a 80 year old female that is here for cholecystitis and obstructing gallstone. Today patient is A&O x 2. She could not tell me her year. She also could tell me the place she was at, however, when I would ask her the year she said she did not know that one. She really has no complaints, however, when she is asked a question she will say yes then change it to no so her answers are not consistent. She also started having tremors while I was examining her. She does have Parkinson's which can be what that is from. Review of Systems Review of Systems: ROS unobtainable: Yes unobtainable due to medical condition Exam Const: General: lorin
[2020-12-22] MEDS: LACTATED RINGERS 1,000 ML 150 ML IV CONT (13:39)
--- NOTE | 2020-12-22 13:39 | WPDANESEPPF ---
Anes - Initial Pre Proc Eval Procedure: Operation Date: 12/22/20 15:45 Proposed Procedures p Endoscopic Retro Cholangiopancreatogram - Randal Molina MD Date/Time: 12/22/20 13:39 Surgeon: Andrew Willett MD Pre Op Diagnosis: choledocolithiasis Patient Data Age: 80 Gender: F Height: 1.63 m Weight: 64.3 kg Last Vital Signs Temp 35.8 C L 12/22/20 13:34 Pulse 55 L 12/22/20 13:34 Resp 18 12/22/20 13:34 BP 116/48 L 12/22/20 13:34 Pulse Ox 97 12/22/20 13:34 Allergies Allergy/AdvReac Type Severity Reaction Status Date / Time No Known Allergies Allergy Mild Verified 12/22/20 13:33 Home Medications Medication Instructions Recorded Confirmed Type carbidopa-levodopa 25 - 100 tablet PO TID 12/19/20 12/20/20 History donepezil 5 mg PO DAILY 12/19/20 12/20/20 History metformin 1,000 mg PO BID 12/19/20 12/20/20 History propranolol 60 mg PO DAILY 12/19/20 12/20/20 History Laboratory Tests 12/22/20 12/22/20 07:36 07:36 WBC 5.2 K/mm3 K/mm3 (4.5-10.0) RBC 3.91 M/mm3 L M/mm3 (4.2-5.4) Hgb 11.9 g/dL L g/dL (12.0-15.0) Hct 36.2 % L % (37.0-47.0) MCV 92.6 fl fl (80-100) MCH 30.4 pg pg (26-34) MCHC 32.9 g/dl g/dl (32-36) RDW 12.8 % % (11.5-14.5) Plt Count 109 k/mm3 L k/mm3 (150-375) MPV 10.9 fl H fl (7.4-10.4) Immature Gran % (Auto) 0.8 % H % (0-0.5) Neut % (Auto) 77.9 % H % (45.5-73.1) Lymph % (Auto) 10.7 % L % (18.3-44.2) [place] % (Auto) 8.1 % % (2.6-8.5) Eos % (Auto) 1.9 % % (0-4.4) Baso % (Auto) 0.6 % % (0.2-1.2) Lymph # (Auto) 0.55 K/mm3 L K/mm3 (0.9-3.2) [place] # (Auto) 0.4 K/mm3 K/mm3 (0.1-0.6) Eos # (Auto) 0.1 K/mm3 K/mm3 (0-0.3) Baso # (Auto) 0.0 K/mm3 K/mm3 (0.0-0.1) Abs Immat Gran (auto) 0.04 K/mm3 H K/mm3 (0.00-0.031) Absolute Neuts (auto) 4.0 K/mm3 K/mm3 (1.3-6.7) Absolute Nucleated RBC 0.0 K/mm3 K/mm3 (0.0-0.012) Nucleated RBC % 0.0 % % (0.0-0.2) Sodium 132 mmol/L L mmol/L (137-145) Potassium 3.4 mmol/L mmol/L (3.4-5.0) Chloride 108 mmol/L H mmol/L (98-107) Carbon Dioxide 22 mmol/L mmol/L (22-30) Anion Gap 2 mmol/L L mmol/L (8-16) BUN 6 mg/dL L mg/dL (7-17) Creatinine 0.50 mg/dL L mg/dL (0.7-1.0) Estim Creat Clear Calc 66 ml/min ml/min Estimated GFR > 60 (59 - ) Glucose 118 mg/dL H mg/dL (65-110) Calcium 7.7 mg/dL L mg/dL (8.4-10.2) Total Bilirubin 2.0 mg/dL H mg/dL (0.2-1.3) AST 71 U/L H U/L (14-36) ALT 123 U/L H U/L (4-35) Alkaline Phosphatase 62 U/L U/L (38-126) Total Protein 5.0 g/dL L g/dL (6.3-8.2) Albumin 2.7 g/dL L g/dL (3.5-5.1) Patient hx anesthesia problems: none Family hx anesthesia problems: none PMFSH Family History Family History Other Unknown family medical history Social History Social History Smoking status: Never smoker Alcohol intake: former Drinks per week: 2 Substance use: never Spiritual care concerns: No Anes - Eval Final PreProcedure Day of Procedure 12/22/20 13:39 Patient weight: normal Heart: regular rate and rhythm Lungs: clear to auscultation Airway: Mallampati scale class II Neurological: alert and oriented (x 2) Last oral intake: >/= 8 hours ASA classification: III Emergent: no Anesthetic plan: proceed Anesthesia type and monitoring: general ETT and standard monitoring Informed Consent: The patient's anesthetic plan and its attendant risks and benefits were discussed with the patient/family/POA. Questions were solicited and answers provided to the satisfaction of the patient/family/POA.
[2020-12-22] MEDS: INDOMETHACIN 50 MG SUPP.RECT RECTAL (14:26)
[2020-12-22] MEDS: CARBIDOPA/LEVODOPA 25/100 MG TABLET 1 TABLET PO (17:36)
[2020-12-23] VITALS (13 sets, daily range): BP systolic 116–154; BP diastolic 48–71; PULSE 53–80; RESP 14–20; TEMP 35.7–36.5; O2SAT 96–100
[2020-12-23] MEDS: SODIUM CHLORIDE 0.9% IV 1,000 ML 125 ML IV CONT ×2 (05:42→19:44)
[2020-12-23 06:19] LABS: Basophils Percent Auto 0.5 % (0.2-1.2); Eosinophils Absolute Auto 0.1 K/mm3 (0-0.3); Eosinophils Percent Auto 1.8 % (0-4.4); Hematocrit 35.9 % (37.0-47.0); Hemoglobin 11.8 g/dL (12.0-15.0); Immature Granulocyte Absolute 0.02 K/mm3 (0.00-0.031); Immature Granulocyte Percent A 0.5 % (0-0.5); Lymphocytes Absolute Auto 0.59 K/mm3 (0.9-3.2); Lymphocytes Percent Auto 15.4 % (18.3-44.2); Mean Corpuscular HGB Conc 32.9 g/dl (32-36); Mean Corpuscular Hemoglobin 30.2 pg (26-34); Mean Corpuscular Volume 91.8 fl (80-100); Mean Platelet Volume 10.9 fl (7.4-10.4); Monocytes Absolute Auto 0.5 K/mm3 (0.1-0.6); Monocytes Percent Auto 13.1 % (2.6-8.5); Neutrophils Absolute Auto 2.6 K/mm3 (1.3-6.7); Neutrophils Percent Auto 68.7 % (45.5-73.1); Platelet Count Result 120 k/mm3 (150-375); Red Blood Count 3.91 M/mm3 (4.2-5.4); Red Cell Distribution Width 12.7 % (11.5-14.5); White Blood Count 3.8 K/mm3 (4.5-10.0)
[2020-12-23 06:24] LABS: Alanine Aminotransferase 115 U/L (4-35); Albumin Level 2.3 g/dL (3.5-5.1); Alkaline Phosphatase 91 U/L (38-126); Anion Gap 7 mmol/L (8-16); Aspartate Amino Transferase 63 U/L (14-36); Bilirubin,Total 4.2 mg/dL (0.2-1.3); Blood Urea Nitrogen 7 mg/dL (7-17); Calcium 7.8 mg/dL (8.4-10.2); Carbon Dioxide 21 mmol/L (22-30); Chloride 107 mmol/L (98-107); Estimated CRCL calculation 66 ml/min; Estimated Glomerular Filt Rate > 60; Glucose 120 mg/dL (65-110); Lipase 13 U/L (23-300); Magnesium 1.4 mg/dL (1.6-2.3); Potassium 3.6 mmol/L (3.4-5.0); Sodium 135 mmol/L (137-145)
[2020-12-23] MEDS: CARBIDOPA/LEVODOPA 25/100 MG TABLET 1 TABLET PO ×2 (08:15→11:38)
[2020-12-23] MEDS: DONEPEZIL HCL 5 MG TABLET PO (08:16)
[2020-12-23] MEDS: PROPRANOLOL HCL 60 MG CAPSULE CR PO (08:16)
[2020-12-23] MEDS: CHLORHEXIDINE GLUCONATE 4% SOL 120 ML BTL 1 APPLIC TOPICAL (08:18)
--- NOTE | 2020-12-23 08:20 | WPDANESPN ---
Anes - Prog Note Post-Op Date/Time: 12/23/20 08:20 Cardiovascular status: normal Respiratory status: normal Airway patency: baseline Mental status: baseline Post-Op hydration status: normal Vital Signs: Last Vital Signs Temp 35.8 C L 12/23/20 05:56 Pulse 54 L 12/23/20 08:16 Resp 18 12/23/20 05:56 BP 129/56 L 12/23/20 05:56 Pulse Ox 96 12/23/20 05:56 Pain Score (VAS): 0 I/O: Intake & Output 12/22/20 12/23/20 12/23/20 23:59 07:59 15:59 Intake Total 1100 1200 Output Total 350 300 Balance 750 900 Laboratory Tests 12/23/20 05:54 12/23/20 05:54 12/22/20 12/22/20 12/23/20 07:36 07:36 05:54 WBC 5.2 3.8 L RBC 3.91 L 3.91 L Hgb 11.9 L 11.8 L Hct 36.2 L 35.9 L MCV 92.6 91.8 MCH 30.4 30.2 MCHC 32.9 32.9 RDW 12.8 12.7 Plt Count 109 L 120 L MPV 10.9 H 10.9 H Immature Gran % (Auto) 0.8 H 0.5 Neut % (Auto) 77.9 H 68.7 Lymph % (Auto) 10.7 L 15.4 L [place] % (Auto) 8.1 13.1 H Eos % (Auto) 1.9 1.8 Baso % (Auto) 0.6 0.5 Lymph # (Auto) 0.55 L 0.59 L [place] # (Auto) 0.4 0.5 Eos # (Auto) 0.1 0.1 Baso # (Auto) 0.0 0.0 Abs Immat Gran (auto) 0.04 H 0.02 Absolute Neuts (auto) 4.0 2.6 Absolute Nucleated RBC 0.0 0.0 Nucleated RBC % 0.0 0.0 Sodium 132 L Potassium 3.4 Chloride 108 H Carbon Dioxide 22 Anion Gap 2 L BUN 6 L Creatinine 0.50 L Estim Creat Clear Calc 66 Estimated GFR > 60 Glucose 118 H Calcium 7.7 L Magnesium Total Bilirubin 2.0 H AST 71 H ALT 123 H Alkaline Phosphatase 62 Total Protein 5.0 L Albumin 2.7 L Amylase Lipase 12/23/20 05:54 WBC RBC Hgb Hct MCV MCH MCHC RDW Plt Count MPV Immature Gran % (Auto) Neut % (Auto) Lymph % (Auto) [place] % (Auto) Eos % (Auto) Baso % (Auto) Lymph # (Auto) [place] # (Auto) Eos # (Auto) Baso # (Auto) Abs Immat Gran (auto) Absolute Neuts (auto) Absolute Nucleated RBC Nucleated RBC % Sodium 135 L Potassium 3.6 Chloride 107 Carbon Dioxide 21 L Anion Gap 7 L BUN 7 Creatinine 0.50 L Estim Creat Clear Calc 66 Estimated GFR > 60 Glucose 120 H Calcium 7.8 L Magnesium 1.4 L Total Bilirubin 4.2 H AST 63 H ALT 115 H Alkaline Phosphatase 91 Total Protein 5.0 L Albumin 2.3 L Amylase Pending Lipase 13 L Microbiology 12/20/20 06:01 Blood Blood Culture - Final Enterobacter cloacae complex 12/20/20 05:59 Blood Blood Culture - Final Enterobacter cloacae complex Post-procedural complaints: none Patient Feedback: Patient satisfied with anesthetic care.
[2020-12-23] MEDS: MAGNESIUM SULF 2 GM/WATER 50ML 2 GM/50 ML BAG IVPB (08:21)
[2020-12-23 09:44] LABS: Amylase 253 U/L (30-110)
--- NOTE | 2020-12-23 10:57 | PM.IMPN ---
Progress Note: A&P Assessment and Plan (1) Septicemia: Code(s): A41.9 - Sepsis, unspecified organism Status: Acute Assessment and Plan: Sepsis from cholecystitis infection. Initial Vital signs: 36.0c, HR 54, RR 16, BP 120/51. WBC 7,800, lactic acid 3.5 repeat lactic acid 2.8 ABD/PEL CT cholelithiasis with obstructing stone 1 L normal saline given in the ED Blood cultures growing Enterobacter cloacae complex Patient has been on IV Zosyn, Infectious disease will be consulted for recommendations on antibiotic treatment. Continue monitoring vitals and labs. Appreciate ID input. (2) Choledocholithiasis: Onset Date: ~12/2020 Code(s): K80.50 - Calculus of bile duct without cholangitis or cholecystitis without obstruction Status: Acute Assessment and Plan: CT showed a common bile duct of 9 mm and an ERCP showed Choledocholithiasis with distal common bile duct high-grade obstruction Plan is for surgery a take the patient to the OR today for a cholecystectomy LFTs elevated Continue IV Zosyn 3.375mg Q6hr Continue monitoring. Appreciate surgery and GIs input. patient had an echocardiogram prior to her surgery today which showed normal EF greater than 70%, LV size normal, wall thickness normal, systolic and diastolic function are normal without any regional wall motion abnormalities. (3) Nausea & vomiting: Onset Date: ~12/2020 Qualifiers: Vomiting Intractability: non-intractable Vomiting type: unspecified Qualified Code(s): R11.2 - Nausea with vomiting, unspecified Code(s): R11.2 - Nausea with vomiting, unspecified Status: Acute Assessment and Plan: NPO for Cholecystectomy today No complaints at this time (4) Elevated LFTs: Onset Date: Unknown Code(s): R79.89 - Other specified abnormal findings of blood chemistry Status: Acute Assessment and Plan: AST 63 ALT 115 bilirubin is 4.2, due to choledocholithasis. Patient going to surgery today Continue trending post op (5) Acute encephalopathy: Code(s): G93.40 - Encephalopathy, unspecified Status: Acute Assessment and Plan: Acute encephalopathy with lactic acidosis suspect dehydration/underlying infection particularly with choledocholithiasis and septicemia At baseline, continue IV abx and ID consulted (6) Advanced dementia: Onset Date: Unknown Code(s): F03.90 - Unspecified dementia without behavioral disturbance Status: Acute Assessment and Plan: patient's baseline continue donepezil 5mg po daily monitor symptoms (7) Tremor: Onset Date: Unknown Code(s): R25.1 - Tremor, unspecified Status: Acute Assessment and Plan: continue home carbidopa levodopa Additional Plan Time Spent With Patient Time with patient: 25 - 35 minutes Subjective Date/time seen: 12/23/20 10:57 Interval history: Patient is a 80 year old female that is here for cholecystitis and obstructing gallstone. Date of service 12/23/2020: Patient reports feeling well without any abdominal pain at this time. She is ready for her surgery today. She denies any fevers, chills, nausea, chest pain, shortness of breath or any other symptoms at this time. She is A&O x2. Pleasantly confused. Review of Systems Review of Systems: ROS unobtainable: Yes unobtainable due to medical condition Exam Narrative: General: 80-year-old woman sitting up in bed, resting. Appears comfortable. In no acute distress. Skin: No jaundice or cyanosis. Good skin turgor. Neck: Full range of motion. Supple. Respiratory: Lungs are clear to auscultation bilaterally. No bony chest wall tenderness. Cardiovascular: The heart has a regular rate and rhythm without murmur. Lower extremities: No lower extremity edema. Distal pulses are easily palpated. No calf tenderness to palpation.
--- NOTE | 2020-12-23 12:00 | WPDGIPROGNO ---
Progress Note: A&P Assessment and Plan (1) Cholangitis: Code(s): K83.09 - Other cholangitis Status: Acute Assessment and Plan: noted enterobacter bacteremia and ercp yesterday with removal large stones continue with iv antibiotics (ID on board) and cholecystectomy today (2) Enterobacter sepsis: Code(s): A41.59 - Other Gram-negative sepsis Status: Acute Assessment and Plan: iv antibiotics (3) Cholelithiasis: Onset Date: ~12/2020 Code(s): K80.20 - Calculus of gallbladder without cholecystitis without obstruction Status: Acute Assessment and Plan: to OR for cholecystectomy now (4) Choledocholithiasis: Onset Date: ~12/2020 Code(s): K80.50 - Calculus of bile duct without cholangitis or cholecystitis without obstruction Status: Acute (5) Elevated LFTs: Onset Date: Unknown Code(s): R79.89 - Other specified abnormal findings of blood chemistry Status: Acute Assessment and Plan: expect that will be elevated for few days, continue to monitor (6) Advanced dementia: Onset Date: Unknown Code(s): F03.90 - Unspecified dementia without behavioral disturbance Status: Acute Subjective Date/time seen: 12/23/20 12:00 Interval history: successful ercp yesterday with removal stones after sphincterotomy, today she is getting cholecystectomy Review of Systems Review of Systems: All systems reviewed & are unremarkable except as noted in HPI and below Exam Const: General: comfortable and no acute distress HENMT: General nose exam: Normal nares present Eyes: Sclera: sclerae normal Neck: Neck: supple Resp: Auscultation: clear to auscultation bilaterally Cardio: Rate: regular rate GI: Inspection: non-distended GI Palp: Yes Soft to palpation and No Guarding due to palpation present (GI) Auscultation: normal bowel sounds Skin: General skin exam: no rashes or lesions noted Neuro: Speech: normal speech Other: awake and alert to person but confused as usual. Fine tremors (chronic finding) Extrem: General: no edema Psych: Affect: No Hostile affect present Objective Data Vital Signs Vital Signs: Vital Signs - 24 hr 12/22/20 15:07 12/22/20 15:17 12/22/20 15:21 Temperature 97.1 F L Pulse Rate 46 L 47 L Respiratory Rate 19 19 Blood Pressure 115/55 L 125/58 L Pulse Oximetry 100 100 100 12/22/20 15:27 12/22/20 15:37 12/22/20 15:47 Temperature Pulse Rate 49 L 48 L 45 L Respiratory Rate 20 14 21 H Blood Pressure 144/72 H 149/64 H 144/64 H Pulse Oximetry 97 100 100 12/22/20 15:57 12/22/20 16:07 12/22/20 16:20 Temperature 97.0 F L 96.0 F L Pulse Rate 49 L 48 L 72 Respiratory Rate 19 22 H 20 Blood Pressure 150/61 H 147/66 H 144/52 H Pulse Oximetry 100 100 96 12/22/20 21:34 12/23/20 05:56 12/23/20 08:16 Temperature 96.6 F L 96.5 F L Pulse Rate 52 L 53 L 54 L Respiratory Rate 16 18 Blood Pressure 156/59 H 129/56 L Pulse Oximetry 96 96 12/23/20 10:18 Temperature Pulse Rate Respiratory Rate Blood Pressure Pulse Oximetry 96 Intake/Output Intake/Output: Intake & Output 12/20/20 12/21/20 12/22/20 12/23/20 23:59 23:59 23:59 23:59 Intake Total 2630 3947 3250 1300 Output Total 300 1100 350 300 Balance 2330 2847 2900 1000 Meds/Results Medications: Active Medications Generic Name Dose Route Start Last Admin Trade Name Freq PRN Reason Stop Dose Admin Carbidopa/Levodopa 1 tablet 12/20/20 08:00 12/23/20 11:38 Carbidopa/Levodopa 25/100 Mg Tablet PO 1 tablet TIDWM DARION Administration Donepezil HCl 5 mg 12/20/20 09:00 12/23/20 08:16 Donepezil Hcl 5 Mg Tablet PO 5 mg DAILY DARION Administration Fentanyl Citrate 50 mcg 12/19/20 21:27 Fentanyl Citrate Inj (*Crx) 100 Mcg/2 Ml Vial IV PUSH Q2H PRN Pain Rated 7-10 Fentanyl Citrate 25 mcg 12/23/20 12:30 Fentanyl Citrate Inj (*Crx) 100 Mcg/2 Ml Vial IV PUSH Q2M P
--- NOTE | 2020-12-23 12:15 | WPDINFPN2 ---
Progress Note: A&P Assessment and Plan (1) Enterobacter sepsis: Code(s): A41.59 - Other Gram-negative sepsis Status: Acute Assessment and Plan: Enterobacter bacteremia due to cholangitis REC Imipenem #1, lap yadira planned, oral quinolone + metronidazole at end of this week if satisfactory post op progress Subjective Date/time seen: 12/23/20 12:15 Objective Data Vital Signs Vital Signs: Vital Signs - 24 hr 12/22/20 13:34 12/22/20 15:07 12/22/20 15:17 Temperature 35.8 C L 36.2 C L Pulse Rate 55 L 46 L 47 L Respiratory Rate 18 19 19 Blood Pressure 116/48 L 115/55 L 125/58 L Pulse Oximetry 97 100 100 12/22/20 15:21 12/22/20 15:27 12/22/20 15:37 Temperature Pulse Rate 49 L 48 L Respiratory Rate 20 14 Blood Pressure 144/72 H 149/64 H Pulse Oximetry 100 97 100 12/22/20 15:47 12/22/20 15:57 12/22/20 16:07 Temperature 36.1 C L Pulse Rate 45 L 49 L 48 L Respiratory Rate 21 H 19 22 H Blood Pressure 144/64 H 150/61 H 147/66 H Pulse Oximetry 100 100 100 12/22/20 16:20 12/22/20 21:34 12/23/20 05:56 Temperature 35.6 C L 35.9 C L 35.8 C L Pulse Rate 72 52 L 53 L Respiratory Rate 20 16 18 Blood Pressure 144/52 H 156/59 H 129/56 L Pulse Oximetry 96 96 96 12/23/20 08:16 12/23/20 10:18 Temperature Pulse Rate 54 L Respiratory Rate Blood Pressure Pulse Oximetry 96 Intake/Output Intake/Output: Intake & Output 12/20/20 12/21/20 12/22/20 12/23/20 23:59 23:59 23:59 23:59 Intake Total 2630 3947 3250 1200 Output Total 300 1100 350 300 Balance 2330 2847 2900 900 Meds/Results Medications: Active Medications Generic Name Dose Route Start Last Admin Trade Name Freq PRN Reason Stop Dose Admin Carbidopa/Levodopa 1 tablet 12/20/20 08:00 12/23/20 11:38 Carbidopa/Levodopa 25/100 Mg Tablet PO 1 tablet TIDWM DARION Administration Donepezil HCl 5 mg 12/20/20 09:00 12/23/20 08:16 Donepezil Hcl 5 Mg Tablet PO 5 mg DAILY DARION Administration Fentanyl Citrate 50 mcg 12/19/20 21:27 Fentanyl Citrate Inj (*Crx) 100 Mcg/2 Ml Vial IV PUSH Q2H PRN Pain Rated 7-10 Sodium Chloride 1,000 mls @ 65 mls/hr 12/19/20 21:30 12/23/20 05:42 Normal Saline Iv IV CONT 125 mls/hr .[id number] DARION Administration Imipenem/Cilastatin Sodium 500 mg in 100 mls @ 300 mls/hr 12/23/20 12:00 Primaxin 500 Mg/D5w 100 Ml IVPB Q6H DARION Ondansetron HCl 4 mg 12/19/20 21:27 Ondansetron Inj 4 Mg/2 Ml Vial IV PUSH Q4H PRN Nausea Radiology Results: ITS Impressions Abdomen/Pelvis CT 12/19/20 20:24 IMPRESSION: 1. Cholelithiasis/choledocholithiasis with small obstructing stone at the distal common bile duct resulting in mild intra and extra hepatic biliary ductal dilation. Correlate with liver function tests and consider ERCP. 2. Small sliding-type hiatal hernia. Endo Retro Cholangiopancreatogram 12/23/20 00:47 IMPRESSION: Choledocholithiasis with distal common bile duct high-grade obstruction Labs Labs: Laboratory Results - last 24 hr 12/23/20 12/23/20 12/23/20 05:54 05:54 05:54 WBC 3.8 L RBC 3.91 L Hgb 11.8 L Hct 35.9 L MCV 91.8 MCH 30.2 MCHC 32.9 RDW 12.7 Plt Count 120 L MPV 10.9 H Immature Gran % (Auto) 0.5 Neut % (Auto) 68.7 Lymph % (Auto) 15.4 L Hill % (Auto) 13.1 H Eos % (Auto) 1.8 Baso % (Auto) 0.5 Lymph # (Auto) 0.59 L Hill # (Auto) 0.5 Eos # (Auto) 0.1 Baso # (Auto) 0.0 Abs Immat Gran (auto) 0.02 Absolute Neuts (auto) 2.6 Absolute Nucleated RBC 0.0 Nucleated RBC % 0.0 Sodium 135 L Potassium 3.6 Chloride 107 Carbon Dioxide 21 L Anion Gap 7 L BUN 7 Creatinine 0.50 L Estim Creat Clear Calc 66 Estimated GFR > 60 Glucose 120 H Calcium 7.8 L Magnesium 1.4 L Total Bilirubin 4.2 H AST 63 H ALT 115 H Alkaline Phosphatase 91 Total Protein 5.0 L Albumin 2.3 L Amylase
--- NOTE | 2020-12-23 12:30 | WPDANESEPPF ---
Anes - Initial Pre Proc Eval Procedure: Operation Date: 12/22/20 15:45 Proposed Procedures p Endoscopic Retro Cholangiopancreatogram - Randal Molina MD Operation Date: 12/23/20 14:00 Proposed Procedures p Laparoscopic Cholecystectomy With Intraoperative Cholangiograms,Possible Open - Yohan Moore MD Date/Time: 12/23/20 12:30 Surgeon: Destiny Rodriguez PA-C Pre Op Diagnosis: choledocolithiasis Patient Data Age: 80 Gender: F Height: 1.63 m Weight: 64.3 kg Last Vital Signs Temp 35.8 C L 12/23/20 05:56 Pulse 54 L 12/23/20 08:16 Resp 18 12/23/20 05:56 BP 129/56 L 12/23/20 05:56 Pulse Ox 96 12/23/20 10:18 Allergies Allergy/AdvReac Type Severity Reaction Status Date / Time No Known Allergies Allergy Mild Verified 12/22/20 13:33 Home Medications Medication Instructions Recorded Confirmed Type carbidopa-levodopa 25 - 100 tablet PO TID 12/19/20 12/20/20 History donepezil 5 mg PO DAILY 12/19/20 12/20/20 History metformin 1,000 mg PO BID 12/19/20 12/20/20 History propranolol 60 mg PO DAILY 12/19/20 12/20/20 History Laboratory Tests 12/23/20 12/23/20 12/23/20 05:54 05:54 05:54 WBC 3.8 K/mm3 L K/mm3 (4.5-10.0) RBC 3.91 M/mm3 L M/mm3 (4.2-5.4) Hgb 11.8 g/dL L g/dL (12.0-15.0) Hct 35.9 % L % (37.0-47.0) MCV 91.8 fl fl (80-100) MCH 30.2 pg pg (26-34) MCHC 32.9 g/dl g/dl (32-36) RDW 12.7 % % (11.5-14.5) Plt Count 120 k/mm3 L k/mm3 (150-375) MPV 10.9 fl H fl (7.4-10.4) Immature Gran % (Auto) 0.5 % % (0-0.5) Neut % (Auto) 68.7 % % (45.5-73.1) Lymph % (Auto) 15.4 % L % (18.3-44.2) Hendricks % (Auto) 13.1 % H % (2.6-8.5) Eos % (Auto) 1.8 % % (0-4.4) Baso % (Auto) 0.5 % % (0.2-1.2) Lymph # (Auto) 0.59 K/mm3 L K/mm3 (0.9-3.2) Hendricks # (Auto) 0.5 K/mm3 K/mm3 (0.1-0.6) Eos # (Auto) 0.1 K/mm3 K/mm3 (0-0.3) Baso # (Auto) 0.0 K/mm3 K/mm3 (0.0-0.1) Abs Immat Gran (auto) 0.02 K/mm3 K/mm3 (0.00-0.031) Absolute Neuts (auto) 2.6 K/mm3 K/mm3 (1.3-6.7) Absolute Nucleated RBC 0.0 K/mm3 K/mm3 (0.0-0.012) Nucleated RBC % 0.0 % % (0.0-0.2) Sodium 135 mmol/L L mmol/L (137-145) Potassium 3.6 mmol/L mmol/L (3.4-5.0) Chloride 107 mmol/L mmol/L (98-107) Carbon Dioxide 21 mmol/L L mmol/L (22-30) Anion Gap 7 mmol/L L mmol/L (8-16) BUN 7 mg/dL mg/dL (7-17) Creatinine 0.50 mg/dL L mg/dL (0.7-1.0) Estim Creat Clear Calc 66 ml/min ml/min Estimated GFR > 60 (59 - ) Glucose 120 mg/dL H mg/dL (65-110) Calcium 7.8 mg/dL L mg/dL (8.4-10.2) Magnesium 1.4 mg/dL L mg/dL (1.6-2.3) Total Bilirubin 4.2 mg/dL H mg/dL (0.2-1.3) AST 63 U/L H U/L (14-36) ALT 115 U/L H U/L (4-35) Alkaline Phosphatase 91 U/L U/L (38-126) Total Protein 5.0 g/dL L g/dL (6.3-8.2) Albumin 2.3 g/dL L g/dL (3.5-5.1) Amylase 253 U/L H U/L (30-110) Lipase 13 U/L L U/L (23-300) Blood Type O Positive Antibody Screen Negative Patient hx anesthesia problems: none Family hx anesthesia problems: none PMFSH Past Medical History Medical History (Updated 12/23/20 @ 12:32 by Abner Monteiro MD) Advanced dementia (Unknown) Choledocholithiasis (~12/2020) Cholelithiasis (~12/2020) Diabetes Sepsis Family History Family History Other Unknown family medical history Social History Social History Smoking status: Never smoker Alcohol intake: former Drinks per week: 2 Substance use: never Spiritual ca
[2020-12-23] MEDS: LACTATED RINGERS 1,000 ML 30 ML IV CONT ×2 (13:00→17:24)
[2020-12-23 13:04] LABS: Glucose Point of Care 105 mg/dl (65-105)
[2020-12-23] MEDS: ACETAMINOPHEN 500 MG TABLET 1000 MG PO (14:09)
--- NOTE | 2020-12-23 14:14 | P.HPUP_ITS ---
History and Physical Update Update Date/Time: 12/23/20 14:14 History and Physical has been reviewed, including an updated exam of the patient. There are changes in the patient's condition. Patient has been on antibiotics and had a successful ERCP yesterday removing 3 stones from the comm on bile duct. Risks, benefits, and alternatives have been discussed and questions answered. Patient agrees to proceed with procedure.
[2020-12-23] MEDS: BUPIVACAINE/EPINEPHRINE 0.5% 50 ML VIAL (15:18)
--- NOTE | 2020-12-23 17:44 | CONS_ITS ---
DATE OF CONSULTATION: 12/23/2020 REASON FOR CONSULTATION: Bacteremia. HISTORY OF PRESENT ILLNESS: A 80-year-old female who can provide limited history due to dementia. She was admitted to the hospital 4 days ago with anorexia, vomiting, decreased level of interaction of 1 day duration. Here she was found to have ampulla of Vater stone as well as abnormal liver function tests. She has been given piperacillin tazobactam. Blood cultures positive. Consultation requested today. Here, she has also had consultations with Gastroenterology and General Surgery. She underwent ERCP yesterday. This showed a filling defect in the distal common bile duct with 3 stones. She had sphincterotomy performed as well as balloon sweeps with extraction of stones, debris, and sludge. Cholangiogram afterwards showed no other defects. She currently denies abdominal pain or other discomfort, nausea, vomiting, subjective fever, chills, or sweats. PRESENT MEDICATIONS: No immunosuppressants. HABITS: Ex social drinker. No tobacco. PAST MEDICAL HISTORY: Essential tremor with minimal use of her right arm, dementia. No other chronic illnesses apparently. REVIEW OF SYSTEMS: 14-point review attempted though not obtainable in a comprehensive fashion due to memory loss. FAMILY HISTORY: Not pertinent to her present illness. SOCIAL HISTORY: She lives locally. Family is at the bedside. Does not work outside the home. PHYSICAL EXAMINATION: GENERAL: Elderly female, appears her actual age. No acute distress. VITAL SIGNS: Afebrile since arrival, 53, 129/56, 18, 96% on room air. SKIN: No generalized rashes. Warm and dry. No icterus nor jaundice. NODES: She has no cervical adenopathy. EENT: The conjunctivae are normal. Pupils equal, round, reactive. The oral mucosa is normal. NECK: No meningismus, mass, tenderness, thyromegaly. LUNGS: Clear to auscultation and percussion. CARDIAC: Regular rate and rhythm. No murmurs or gallops. Peripheral pulses 1+ equal. ABDOMEN: Mildly obese, not distended. Normal bowel sounds. No organomegaly. No masses. EXTREMITIES: No clubbing, cyanosis, or edema. No venous varicosities. LABORATORY DATA: Blood cultures 2/2 sets, Enterobacter cloacae. I reviewed the susceptibilities. White blood cell count normal on admission and today 3.8, hemoglobin 11.8, platelets are 120, which is higher than prior. Chemistries with mild hyponatremia, glucose 120, magnesium 1.4, AST 63, which is lower. ALT 115, which is about the same as prior. Albumin 2.3. Amylase 253. Lipase was low to normal. Bilirubin 4.2, direct, earlier measured at 0.4. RADIOLOGY: ERCP as above. Abdomen and pelvic CT showed stones, hiatal hernia, no cholecystitis, cortical scarring, left kidney, renal cyst, uterus absent, spondylosis. ASSESSMENT: 1. Enterobacter bacteremia with infection due to cholangitis and stones. Alternative sources of bacteremia are unlikely including cholecystitis, lower GI, , pulmonary or primary bloodstream. 2. Mild leukopenia and elevated liver function tests, which could be due to her bacteremia as well as due to her obstruction. 3. Dementia. 4. Mild thrombocytopenia. RECOMMENDATIONS: 1. Given her susceptibility and the nature of her organism, we changed to imipenem from the piperacillin. 2. Laparoscopic cholecystectomy planned for today. 3. If she has satisfactory postoperative course, an oral quinolone plus metronidazole would be appropriate in several days' time. 4. Thank you very much for asking me to see her. Discussed with the patient and with her son. DILCIA BUTT M.D. VEHICLE CALIBRATION ENGINEER :1
--- NOTE | 2020-12-23 17:47 | W.PM.PROC2 ---
Procedure Note - Detailed Date of Procedure 12/25/20 Pre-op Diagnosis 1.Chronic cholecystitis with cholelithiasis and choledocholithiasis 2. choledocolithiasis, status post ERCP for sphincterotomy and removal of stones Post-op Diagnosis other (Acute on chronic cholecystitis with cholelithiasis otherwise same as above) Procedure Performed Laparoscopic cholecystectomy with intraoperative cholangiogram Surgeon Yohan Moore MD Waterworks Operator Yana MELO.OR Clinical Molecular Geneticist Indications Patient recently admitted to the hospital with C CT scan showing choledocholithiasis some gallbladder wall thickening and stones in the gallbladder. She was also noted to have elevated liver function tests consistent with possible common bile duct obstruction. Yesterday she underwent successful ERCP with removal of 3 fairly good size stones. After clearance by the medical service for general anesthesia we proceeded with recommended laparoscopic cholecystectomy and intraoperative cholangiogram to remove source of stones to prevent a future episode. Findings Thickened gallbladder mostly covered with omentum containing stones and a wide cystic duct. Cholangiogram showed what appeared to be irregular changes in the distal common duct and the radiologist felt this might be old blood secondary to her recent ERCP rather than something regularly shaped which would indicate a new stone in the common duct. Patient also had a adhesion of the small bowel to the anterior abdominal wall underneath her old scar just inferior to where we entered the abdomen at the umbilicus, but with visualization from the upper ports using a 5 mm scope there was no apparent injury to this loop of bowel. She had a significant adhesion of the omentum superior to the umbilicus that we had to work around by moving along it to the right side and sweeping the camera above it. I did not take down any of the adhesions of the omentum to the anterior abdominal wall above the level of the umbilicus. Description of Procedure Procedure Details: Patient was seen preoperatively in the holding area and risks, benefits and alternatives confirmed. Patient was taken to the operating room and general anesthesia was induced. A time out was then preformed with the surgery team confirming patient and site of surgery. The abdomen was prepped and draped in the usual sterile fashion. Incision was made just below the umbilicus. Two stay sutures of O- Vicryl were used to elevate the mid-line fascia beneath the umbilicus and a small incision was made under direct vision. The peritoneum was entered. The 12 mm Arriola cannula was introduced under direct vision. First under low flow and then under high flow the abdomen was insufflated with carbon dioxide never exceeding a pressure of 14. Three 5 mm trocars were then introduced under direct vision. The following trocars were introduced under direct vision: a 12 mm in the epigastrium and two 5 mm trocars along the right costal margin. There were significant adhesions of the omentum to the underside of the gallbladder and these were taken down with blunt and sharp dissection. Bovie cautery was used for hemostasis. The gall bladder was grasped and the cystic duct and artery were dissected free and I carefully identified a window of safety with only two other structures in the area being the cystic duct and the cystic artery. I then used a 10 mm endo-clip stage hand to place 2 clips on the patient's side 1 on the gallbladder side on the cystic artery and just 1 clip on the gallbladder side of the cystic duct. A small hole was made in the cystic duct with endoshears and a cholagio-cath introduced. This was held in place with a single 10 mm clip. A cholangiogram was obtained revealing free flow into the cystic duct, common bile duct, common hepatic, right and left hepatic ducts with flow into the duodenum on the 2nd injection showing some irregular changes along the wall of the common duct distally, just
[2020-12-23 18:03] LABS: Glucose Point of Care 110 mg/dl (65-105)
[2020-12-24 00:16] VITALS: BP 149/45; PULSE 58; RESP 18; TEMP 35.8; O2SAT 98
[2020-12-24 04:16] VITALS: BP 133/55; PULSE 58; RESP 16; TEMP 36.4; O2SAT 97
[2020-12-24] MEDS: SODIUM CHLORIDE 0.9% IV 1,000 ML 65 ML IV CONT ×2 (04:48→23:47)
[2020-12-24 06:11] LABS: Basophils Percent Auto 0.4 % (0.2-1.2); Eosinophils Percent Auto 0.4 % (0-4.4); Hematocrit 37.1 % (37.0-47.0); Hemoglobin 12.3 g/dL (12.0-15.0); Immature Granulocyte Absolute 0.05 K/mm3 (0.00-0.031); Lymphocytes Absolute Auto 0.75 K/mm3 (0.9-3.2); Lymphocytes Percent Auto 14.7 % (18.3-44.2); Mean Corpuscular HGB Conc 33.2 g/dl (32-36); Mean Corpuscular Hemoglobin 30.4 pg (26-34); Mean Corpuscular Volume 91.6 fl (80-100); Mean Platelet Volume 10.8 fl (7.4-10.4); Monocytes Absolute Auto 0.5 K/mm3 (0.1-0.6); Monocytes Percent Auto 10.2 % (2.6-8.5); Neutrophils Absolute Auto 3.7 K/mm3 (1.3-6.7); Neutrophils Percent Auto 73.3 % (45.5-73.1); Platelet Count Result 146 k/mm3 (150-375); Red Blood Count 4.05 M/mm3 (4.2-5.4); Red Cell Distribution Width 12.7 % (11.5-14.5); White Blood Count 5.1 K/mm3 (4.5-10.0)
[2020-12-24 06:33] LABS: Alanine Aminotransferase 109 U/L (4-35); Albumin Level 2.4 g/dL (3.5-5.1); Alkaline Phosphatase 89 U/L (38-126); Anion Gap 6 mmol/L (8-16); Aspartate Amino Transferase 69 U/L (14-36); Bilirubin,Total 2.2 mg/dL (0.2-1.3); Blood Urea Nitrogen 12 mg/dL (7-17); Calcium 7.8 mg/dL (8.4-10.2); Carbon Dioxide 22 mmol/L (22-30); Chloride 104 mmol/L (98-107); Estimated CRCL calculation 56 ml/min; Estimated Glomerular Filt Rate > 60; Glucose 151 mg/dL (65-110); Magnesium 1.5 mg/dL (1.6-2.3); Potassium 4.1 mmol/L (3.4-5.0); Sodium 132 mmol/L (137-145)
[2020-12-24] MEDS: CARBIDOPA/LEVODOPA 25/100 MG TABLET 1 TABLET PO ×3 (07:52→17:33)
[2020-12-24] MEDS: DONEPEZIL HCL 5 MG TABLET PO (07:52)
[2020-12-24 08:16] VITALS: BP 117/68; PULSE 61; RESP 24; TEMP 36.8; O2SAT 97
[2020-12-24] MEDS: MAGNESIUM OXIDE 400 MG TABLET PO (09:35)
--- NOTE | 2020-12-24 10:10 | PM.PNGS ---
Progress Note: A&P Assessment and Plan (1) Cholangitis: Code(s): K83.09 - Other cholangitis Status: Acute Assessment and Plan: Doing well on postop day 1. Will continue to monitor OSMANI drain today. Advanced to low-fat diet today. Continue PT OT today and re-evaluate tomorrow. If patient continues to be very weak and needs maximum assist, she may require SNF or rehab placement while continuing to recover from surgery. Continue antibiotics per ID. White count normal today and remaining afebrile. (2) Choledocholithiasis: Onset Date: ~12/2020 Code(s): K80.50 - Calculus of bile duct without cholangitis or cholecystitis without obstruction Status: Acute (3) Cholelithiasis: Onset Date: ~12/2020 Code(s): K80.20 - Calculus of gallbladder without cholecystitis without obstruction Status: Acute (4) Advanced dementia: Onset Date: Unknown Code(s): F03.90 - Unspecified dementia without behavioral disturbance Status: Acute Subjective Subjective Date/Time Seen: 12/24/20 10:10 Post Op day: 1 Interval history: Patient tolerating full liquid diet. No nausea or vomiting. No fevers. Still somewhat weak from surgery, but sitting in chair this morning after breakfast. Pain seems well controlled. Exam GI: Inspection: incision ( Intact with glue, slight serous drainage around OSMANI site.) and other (OSMANI serosanguinous) GI Palp: Yes Soft to palpation and No Tenderness to palpation present (GI) Objective Data Vital Signs Vital Signs: Vital Signs - 24 hr 12/23/20 10:18 12/23/20 17:24 12/23/20 17:35 Temperature 36.5 C Pulse Rate 80 71 Respiratory Rate 14 16 Blood Pressure 116/48 L 142/60 H Pulse Oximetry 96 99 100 12/23/20 17:50 12/23/20 18:05 12/23/20 18:10 Temperature Pulse Rate 72 67 Respiratory Rate 16 15 Blood Pressure 137/65 132/71 Pulse Oximetry 100 100 97 12/23/20 18:20 12/23/20 18:31 12/23/20 18:46 Temperature 35.7 C L 35.7 C L Pulse Rate 67 64 64 Respiratory Rate 18 16 16 Blood Pressure 154/68 H 151/58 H 151/58 H Pulse Oximetry 98 99 99 12/23/20 20:16 12/23/20 21:45 12/24/20 00:16 Temperature 36.3 C L 35.8 C L Pulse Rate 61 58 L Respiratory Rate 20 18 Blood Pressure 150/58 H 149/45 H Pulse Oximetry 100 100 98 12/24/20 04:16 12/24/20 08:16 Temperature 36.4 C L 36.8 C Pulse Rate 58 L 61 Respiratory Rate 16 24 H Blood Pressure 133/55 L 117/68 Pulse Oximetry 97 97 Intake/Output Intake/Output: Intake & Output 12/21/20 12/22/20 12/23/20 12/24/20 23:59 23:59 23:59 23:59 Intake Total 3947 3250 2920 1400 Output Total 1100 350 700 0 Balance 2847 2900 2220 1400 Meds/Results Medications: Active Medications Generic Name Dose Route Start Last Admin Trade Name Freq PRN Reason Stop Dose Admin Acetaminophen 500 mg 12/23/20 18:31 Acetaminophen 500 Mg Tablet PO Q6H PRN Mild Pain (1-3) or Fever Hydrocodone Bitart/Acetaminophen 1 tab 12/23/20 18:31 Hydrocodone/Acetaminophen (*Crx) 5-325 Mg Tablet PO Q6H PRN Pain Rated 4-6 Hydrocodone Bitart/Acetaminophen 1 tab 12/23/20 18:31 Hydrocodone/Acetaminophen (*Crx) 7.5-325 Mg Tablet PO Q6H PRN Pain Rated 7-10 Carbidopa/Levodopa 1 tablet 12/20/20 08:00 12/24/20 07:52 Carbidopa/Levodopa 25/100 Mg Tablet PO 1 tablet TIDWM DARION Administration Diphenhydramine HCl 25 mg 12/23/20 18:31 Diphenhydramine Hcl Inj 50 Mg/Ml Vial IV PUSH Q6H PRN Itching Donepezil HCl 5 mg 12/20/20 09:00 12/24/20 07:52 Donepezil Hcl 5 Mg Tablet PO 5 mg DAILY DARION Administration Fentanyl Citrate 50 mcg 12/19/20 21:27 Fentanyl Citrate Inj (*Crx) 100 Mcg/2 Ml Vial IV PUSH Q2H PRN Pain Rated 7-10 Fentanyl Citrate 25 mcg 12/23/20 12:30 Fentanyl Citrate Inj (*Crx) 100 Mcg/2 Ml Vial IV PUSH Q2M PRN Pain Sodium Chloride 1,000 mls @ 65 mls/hr 12/19/20 21:30 12/24/20 04:48
--- NOTE | 2020-12-24 11:20 | WPDGIPROGNO ---
Progress Note: A&P Assessment and Plan (1) Cholangitis: Code(s): K83.09 - Other cholangitis Status: Acute Assessment and Plan: noted enterobacter bacteremia, s/p ERCP with removal large stones and lap yadira continue with iv antibiotics (ID on board) liver enzymes trending down (2) Enterobacter sepsis: Code(s): A41.59 - Other Gram-negative sepsis Status: Acute Assessment and Plan: biliary source and treated with ercp and yadira iv antibiotics (3) Cholelithiasis: Onset Date: ~12/2020 Code(s): K80.20 - Calculus of gallbladder without cholecystitis without obstruction Status: Acute (4) Choledocholithiasis: Onset Date: ~12/2020 Code(s): K80.50 - Calculus of bile duct without cholangitis or cholecystitis without obstruction Status: Acute Assessment and Plan: s/p ercp (5) Elevated LFTs: Onset Date: Unknown Code(s): R79.89 - Other specified abnormal findings of blood chemistry Status: Acute Assessment and Plan: expect that will be elevated for few days but already trending down (6) Advanced dementia: Onset Date: Unknown Code(s): F03.90 - Unspecified dementia without behavioral disturbance Status: Acute Subjective Date/time seen: 12/24/20 11:20 Interval history: doing well, recovering from surgery. Son is at bedside Review of Systems Review of Systems: All systems reviewed & are unremarkable except as noted in HPI and below Exam Const: General: comfortable and no acute distress HENMT: General nose exam: Normal nares present Eyes: Sclera: sclerae normal Neck: Neck: supple Resp: Auscultation: clear to auscultation bilaterally Cardio: Rate: regular rate GI: Inspection: non-distended GI Palp: Yes Soft to palpation and Yes Tenderness to palpation present (GI) (minimal tender after surgery) Auscultation: normal bowel sounds Other: OSMANI drain, incision looks ok with minimal serosanguineous drainage Skin: General skin exam: no rashes or lesions noted Neuro: Speech: normal speech Other: awake and alert to person but confused as usual. Fine tremors (chronic finding) Extrem: General: no edema Psych: Affect: No Hostile affect present Objective Data Vital Signs Vital Signs: Vital Signs - 24 hr 12/23/20 17:24 12/23/20 17:35 12/23/20 17:50 Temperature 97.7 F Pulse Rate 80 71 72 Respiratory Rate 14 16 16 Blood Pressure 116/48 L 142/60 H 137/65 Pulse Oximetry 99 100 100 12/23/20 18:05 12/23/20 18:10 12/23/20 18:20 Temperature Pulse Rate 67 67 Respiratory Rate 15 18 Blood Pressure 132/71 154/68 H Pulse Oximetry 100 97 98 12/23/20 18:31 12/23/20 18:46 12/23/20 20:16 Temperature 96.3 F L 96.3 F L 97.4 F L Pulse Rate 64 64 61 Respiratory Rate 16 16 20 Blood Pressure 151/58 H 151/58 H 150/58 H Pulse Oximetry 99 99 100 12/23/20 21:45 12/24/20 00:16 12/24/20 04:16 Temperature 96.5 F L 97.5 F L Pulse Rate 58 L 58 L Respiratory Rate 18 16 Blood Pressure 149/45 H 133/55 L Pulse Oximetry 100 98 97 12/24/20 08:16 Temperature 98.2 F Pulse Rate 61 Respiratory Rate 24 H Blood Pressure 117/68 Pulse Oximetry 97 Intake/Output Intake/Output: Intake & Output 12/21/20 12/22/20 12/23/20 12/24/20 23:59 23:59 23:59 23:59 Intake Total 3947 3250 2920 1400 Output Total 1100 350 700 0 Balance 2847 2900 2220 1400 Meds/Results Medications: Active Medications Generic Name Dose Route Start Last Admin Trade Name Freq PRN Reason Stop Dose Admin Acetaminophen 500 mg 12/23/20 18:31 Acetaminophen 500 Mg Tablet PO Q6H PRN Mild Pain (1-3) or Fever Hydrocodone Bitart/Acetaminophen 1 tab 12/23/20 18:31 Hydrocodone/Acetaminophen (*Crx) 5-325 Mg Tablet PO Q6H PRN Pain Rated 4-6 Hydrocodone Bitart/Acetaminophen 1 tab 12/23/20 18:31 Hydrocodone/Acetaminophen (*Crx) 7.5-325 Mg Tablet PO Q6H PRN Pain Rated 7-10 Carbi
--- NOTE | 2020-12-24 11:27 | WPDANESPN ---
Anes - Prog Note Post-Op Date/Time: 12/24/20 11:27 Cardiovascular status: normal Respiratory status: normal Airway patency: baseline Mental status: baseline Post-Op hydration status: normal Vital Signs: Last Vital Signs Temp 36.8 C 12/24/20 08:16 Pulse 61 12/24/20 08:16 Resp 24 H 12/24/20 08:16 BP 117/68 12/24/20 08:16 Pulse Ox 97 12/24/20 08:16 Pain Score (VAS): 0 I/O: Intake & Output 12/23/20 12/24/20 12/24/20 23:59 07:59 15:59 Intake Total 620 1200 200 Output Total 400 0 Balance 220 1200 200 Laboratory Tests 12/24/20 05:39 12/24/20 05:39 12/23/20 12/23/20 12/24/20 13:00 17:58 05:39 WBC 5.1 RBC 4.05 L Hgb 12.3 Hct 37.1 MCV 91.6 MCH 30.4 MCHC 33.2 RDW 12.7 Plt Count 146 L MPV 10.8 H Immature Gran % (Auto) 1.0 H Neut % (Auto) 73.3 H Lymph % (Auto) 14.7 L Sharkey % (Auto) 10.2 H Eos % (Auto) 0.4 Baso % (Auto) 0.4 Lymph # (Auto) 0.75 L Sharkey # (Auto) 0.5 Eos # (Auto) 0.0 Baso # (Auto) 0.0 Abs Immat Gran (auto) 0.05 H Absolute Neuts (auto) 3.7 Absolute Nucleated RBC 0.0 Nucleated RBC % 0.0 Sodium Potassium Chloride Carbon Dioxide Anion Gap BUN Creatinine Estim Creat Clear Calc Estimated GFR Glucose POC Capillary Glucose 105 110 H Calcium Magnesium Total Bilirubin AST ALT Alkaline Phosphatase Total Protein Albumin 12/24/20 05:39 WBC RBC Hgb Hct MCV MCH MCHC RDW Plt Count MPV Immature Gran % (Auto) Neut % (Auto) Lymph % (Auto) Sharkey % (Auto) Eos % (Auto) Baso % (Auto) Lymph # (Auto) Sharkey # (Auto) Eos # (Auto) Baso # (Auto) Abs Immat Gran (auto) Absolute Neuts (auto) Absolute Nucleated RBC Nucleated RBC % Sodium 132 L Potassium 4.1 Chloride 104 Carbon Dioxide 22 Anion Gap 6 L BUN 12 D Creatinine 0.60 L Estim Creat Clear Calc 56 Estimated GFR > 60 Glucose 151 H POC Capillary Glucose Calcium 7.8 L Magnesium 1.5 L Total Bilirubin 2.2 H AST 69 H ALT 109 H Alkaline Phosphatase 89 Total Protein 5.0 L Albumin 2.4 L Microbiology 12/20/20 06:01 Blood Blood Culture - Final Enterobacter cloacae complex Post-procedural complaints: none Patient Feedback: Patient satisfied with anesthetic care.
--- NOTE | 2020-12-24 11:33 | PM.IMPN ---
Progress Note: A&P Assessment and Plan (1) Septicemia: Code(s): A41.9 - Sepsis, unspecified organism Status: Acute Assessment and Plan: Sepsis from due to cholangitis and stones. Initial Vital signs: 36.0c, HR 54, RR 16, BP 120/51. WBC 7,800, lactic acid 3.5 repeat lactic acid 2.8 with positive blood cultures with growth of Enterobacter cloacae complex. ABD/PEL CT cholelithiasis with obstructing stone Patient had been on IV Zosyn, Infectious disease switched Abx to IV Imipenem to continue while hospitalized. States once patient is stable for discharge she can be switched to oral quinolone loan plus metronidazole for treatment. Continue monitoring vitals and labs. Appreciate ID input. (2) Choledocholithiasis: Onset Date: ~12/2020 Code(s): K80.50 - Calculus of bile duct without cholangitis or cholecystitis without obstruction Status: Acute Assessment and Plan: CT showed a common bile duct of 9 mm and an ERCP showed Choledocholithiasis with distal common bile duct high-grade obstruction Dr. Moore Surgery took the patient to the OR for Laparoscopic cholecystectomy with intraoperative cholangiogram Continue IV Imipenem Continue monitoring. Appreciate surgery and GIs input. patient had an echocardiogram prior to her surgery today which showed normal EF greater than 70%, LV size normal, wall thickness normal, systolic and diastolic function are normal without any regional wall motion abnormalities. (3) Nausea & vomiting: Onset Date: ~12/2020 Qualifiers: Vomiting Intractability: non-intractable Vomiting type: unspecified Qualified Code(s): R11.2 - Nausea with vomiting, unspecified Code(s): R11.2 - Nausea with vomiting, unspecified Status: Acute Assessment and Plan: Resolved. Surgery advancing diet today to Low Fat and will see how she tolerates. (4) Elevated LFTs: Onset Date: Unknown Code(s): R79.89 - Other specified abnormal findings of blood chemistry Status: Acute Assessment and Plan: LFTs trending down after surgery. Continue trending post op (5) Acute encephalopathy: Code(s): G93.40 - Encephalopathy, unspecified Status: Acute Assessment and Plan: Acute encephalopathy with lactic acidosis suspect dehydration/infection particularly with choledocholithiasis and septicemia At baseline, continue IV abx and ID consulted (6) Advanced dementia: Onset Date: Unknown Code(s): F03.90 - Unspecified dementia without behavioral disturbance Status: Acute Assessment and Plan: patient's baseline continue donepezil 5mg po daily monitor symptoms (7) Tremor: Onset Date: Unknown Code(s): R25.1 - Tremor, unspecified Status: Acute Assessment and Plan: continue home carbidopa levodopa Additional Plan Time Spent With Patient Time with patient: 25 - 35 minutes Subjective Date/time seen: 12/24/20 11:33 Interval history: Patient is a 80 year old female that is here for cholecystitis and obstructing gallstone. Date of service 12/24/2020: Patient reports feeling well without any abdominal pain at this time. She states she has to go to the bathroom. She is eating and drinking without any issues. She denies any fevers, chills, nausea, chest pain, shortness of breath or any other symptoms at this time. She is A&O x2. Pleasantly confused. Review of Systems Review of Systems: ROS unobtainable: Yes unobtainable due to medical condition Exam Narrative: General: 80-year-old woman sitting up in the chair drinking some water. Appears comfortable. In no acute distress. Skin: No jaundice or cyanosis. Good skin turgor. Neck: Full range of motion. Supple. Respiratory: Lungs are clear to auscultation bilaterally. No bony chest wall tenderness. Cardiovascular: The heart has a regular rate and rhy
[2020-12-24 15:28] VITALS: BP 128/51; PULSE 56; RESP 24; TEMP 36.8; O2SAT 95
[2020-12-24] MEDS: SENNA/DOCUSATE SODIUM TABLET 2 TAB PO (20:57)
[2020-12-24 22:00] VITALS: BP 145/57; PULSE 55; RESP 16; TEMP 36.3; O2SAT 96
[2020-12-25 05:32] VITALS: BP 159/52; PULSE 51; RESP 16; TEMP 36.1; O2SAT 96
[2020-12-25 06:24] LABS: Hematocrit 44.3 % (37.0-47.0); Hemoglobin 13.9 g/dL (12.0-15.0); Immature Platelet Fraction Pct 4.6 % (0.9-11.2); Mean Corpuscular HGB Conc 31.4 g/dl (32-36); Mean Corpuscular Hemoglobin 29.7 pg (26-34); Mean Corpuscular Volume 94.7 fl (80-100); Mean Platelet Volume 10.2 fl (7.4-10.4); Platelet Count Result 120 k/mm3 (150-375); Red Blood Count 4.68 M/mm3 (4.2-5.4); Red Cell Distribution Width 12.7 % (11.5-14.5); White Blood Count 4.4 K/mm3 (4.5-10.0)
[2020-12-25 06:42] LABS: Alanine Aminotransferase 43 U/L (4-35); Albumin Level 2.9 g/dL (3.5-5.1); Alkaline Phosphatase 104 U/L (38-126); Anion Gap 6 mmol/L (8-16); Aspartate Amino Transferase 65 U/L (14-36); Bilirubin,Total 1.5 mg/dL (0.2-1.3); Blood Urea Nitrogen 8 mg/dL (7-17); Calcium 7.7 mg/dL (8.4-10.2); Carbon Dioxide 20 mmol/L (22-30); Chloride 112 mmol/L (98-107); Estimated CRCL calculation 66 ml/min; Estimated Glomerular Filt Rate > 60; Glucose 124 mg/dL (65-110); Magnesium 1.7 mg/dL (1.6-2.3); Potassium 3.2 mmol/L (3.4-5.0); Sodium 138 mmol/L (137-145)
[2020-12-25] MEDS: MAGNESIUM SULF 2 GM/WATER 50ML 2 GM/50 ML BAG IVPB (08:58)
[2020-12-25] MEDS: CARBIDOPA/LEVODOPA 25/100 MG TABLET 1 TABLET PO ×3 (09:25→16:17)
[2020-12-25] MEDS: DONEPEZIL HCL 5 MG TABLET PO (09:25)
[2020-12-25] MEDS: MAGNESIUM OXIDE 400 MG TABLET PO (09:26)
[2020-12-25] MEDS: POTASSIUM CHLORIDE 20 MEQ TABLET 40 MEQ PO (10:34)
--- NOTE | 2020-12-25 13:01 | WPDGIPROGNO ---
Progress Note: A&P Assessment and Plan (1) Cholangitis: Code(s): K83.09 - Other cholangitis Status: Acute Assessment and Plan: noted enterobacter bacteremia, s/p ERCP with removal large stones and lap yadira continue with iv antibiotics bili is coming down (2) Enterobacter sepsis: Code(s): A41.59 - Other Gram-negative sepsis Status: Acute Assessment and Plan: biliary source and treated with ercp and yadira iv antibiotics (3) Cholelithiasis: Onset Date: ~12/2020 Code(s): K80.20 - Calculus of gallbladder without cholecystitis without obstruction Status: Acute Assessment and Plan: s/p lap yadira (4) Choledocholithiasis: Onset Date: ~12/2020 Code(s): K80.50 - Calculus of bile duct without cholangitis or cholecystitis without obstruction Status: Acute Assessment and Plan: s/p ercp (5) Elevated LFTs: Onset Date: Unknown Code(s): R79.89 - Other specified abnormal findings of blood chemistry Status: Acute Assessment and Plan: already trending down (6) Advanced dementia: Onset Date: Unknown Code(s): F03.90 - Unspecified dementia without behavioral disturbance Status: Acute Subjective Date/time seen: 12/25/20 13:01 Interval history: RN reports that not issues and patient is comfortable Review of Systems Review of Systems: All systems reviewed & are unremarkable except as noted in HPI and below Exam Const: General: comfortable and no acute distress HENMT: General nose exam: Normal nares present Eyes: Sclera: sclerae normal Neck: Neck: supple Resp: Auscultation: clear to auscultation bilaterally Cardio: Rate: regular rate GI: Inspection: non-distended GI Palp: Yes Soft to palpation and Yes Tenderness to palpation present (GI) (minimal tender after surgery) Auscultation: normal bowel sounds Other: OSMANI drain, incision looks ok Skin: General skin exam: no rashes or lesions noted Neuro: Speech: normal speech Other: awake and alert to person but confused as usual. Fine tremors (chronic finding) Extrem: General: no edema Psych: Affect: No Hostile affect present Objective Data Vital Signs Vital Signs: Vital Signs - 24 hr 12/24/20 15:28 12/24/20 22:00 12/25/20 05:32 Temperature 98.2 F 97.3 F L 97.0 F L Pulse Rate 56 L 55 L 51 L Respiratory Rate 24 H 16 16 Blood Pressure 128/51 L 145/57 H 159/52 H Pulse Oximetry 95 96 96 Intake/Output Intake/Output: Intake & Output 12/22/20 12/23/20 12/24/20 12/25/20 23:59 23:59 23:59 23:59 Intake Total 3250 2920 3080 440 Output Total 350 700 45 80 Balance 2900 2220 3035 360 Meds/Results Medications: Active Medications Generic Name Dose Route Start Last Admin Trade Name Freq PRN Reason Stop Dose Admin Acetaminophen 500 mg 12/23/20 18:31 Acetaminophen 500 Mg Tablet PO Q6H PRN Mild Pain (1-3) or Fever Hydrocodone Bitart/Acetaminophen 1 tab 12/23/20 18:31 Hydrocodone/Acetaminophen (*Crx) 5-325 Mg Tablet PO Q6H PRN Pain Rated 4-6 Hydrocodone Bitart/Acetaminophen 1 tab 12/23/20 18:31 Hydrocodone/Acetaminophen (*Crx) 7.5-325 Mg Tablet PO Q6H PRN Pain Rated 7-10 Carbidopa/Levodopa 1 tablet 12/20/20 08:00 12/25/20 12:46 Carbidopa/Levodopa 25/100 Mg Tablet PO 1 tablet TIDWM DARION Administration Diphenhydramine HCl 25 mg 12/23/20 18:31 Diphenhydramine Hcl Inj 50 Mg/Ml Vial IV PUSH Q6H PRN Itching Donepezil HCl 5 mg 12/20/20 09:00 12/25/20 09:25 Donepezil Hcl 5 Mg Tablet PO 5 mg DAILY DARION Administration Fentanyl Citrate 50 mcg 12/19/20 21:27 Fentanyl Citrate Inj (*Crx) 100 Mcg/2 Ml Vial IV PUSH Q2H PRN Pain Rated 7-10 Fentanyl Citrate 25 mcg 12/23/20 12:30 Fentanyl Citrate Inj (*Crx) 100 Mcg/2 Ml Vial IV PUSH Q2M PRN Pain Imipenem/Cilastatin Sodium 500 mg in 100 mls @ 300 mls/hr 12/23/20 12:00 12/25/20
[2020-12-25] MEDS: HYDROcodone/acetaminophen (*CRX) 5-325 MG TABLET 1 TAB PO (16:16)
--- NOTE | 2020-12-25 16:54 | PM.DS ---
DS: Admitting Diagnosis Admitting Diagnosis AMS, vomiting DS: Discharge Diagnosis Discharge Diagnosis (1) Septicemia: Code(s): A41.9 - Sepsis, unspecified organism Status: Acute Assessment and Plan: The patient is a 80-year-old woman with a past medical history of dementia, who presents from her home with family with symptoms of decreased appetite, vomiting, altered mental status which is become progressively worse over last 24 hours. In the ER, was noted to be in no acute distress with stable vitals. Laboratory evaluation were unremarkable except for lactic acidosis of 3.5 and elevated AST ALT at 795 and 327 respectively alk phos and noted to be normal however total bilirubin is elevated at 3.9 she was started on IV hydration in the ER. A CT scan of the abdomen and pelvis was done which showed cholelithiasis and choledocholithiasis with small obstructing stone at the distal common bile duct resulting in mild intra nap extrahepatic biliary duct dilatation. She is admitted for further evaluation and management of this. Gastroenterology has been consulted from the ER and had an ERCP on 12/22/20 and a bile duct stone was successfully removed. General surgery was consulted and Dr. Moore preformed a lap cholecystectomy with intraoperative cholangiogram on 12/23/20. Patient progressed well after her surgery with advancement of her diet. She had no complaints or complications postop. She did have a OSMANI drain that was removed prior to discharge by surgery. She was also found to have positive blood cultures with growth of Enterobacter cloacae complex. Patient had been on IV Zosyn, Infectious disease switched Abx to IV Imipenem 12/23/20 to continue while hospitalized. States once patient is stable for discharge she can be switched to oral quinolone plus metronidazole for treatment. The patient will be discharged on Levaquin and metronidazole for 10 more days of treatment for a total of 14 days. Follow-up with surgery after discharge. Return to ER warnings given. Follow-up with primary care provider for further evaluation after discharge. Continue on low residual diet for 2 weeks. The patient is discharged in stable condition to a SNF facility for further PT and OT therapy. Patient understands agrees the plan all questions answered. (2) Choledocholithiasis: Onset Date: ~12/2020 Code(s): K80.50 - Calculus of bile duct without cholangitis or cholecystitis without obstruction Status: Acute (3) Nausea & vomiting: Onset Date: ~12/2020 Qualifiers: Vomiting Intractability: non-intractable Vomiting type: unspecified Qualified Code(s): R11.2 - Nausea with vomiting, unspecified Code(s): R11.2 - Nausea with vomiting, unspecified Status: Acute (4) Elevated LFTs: Onset Date: Unknown Code(s): R79.89 - Other specified abnormal findings of blood chemistry Status: Acute Assessment and Plan: LFTs trending down after surgery. (5) Acute encephalopathy: Code(s): G93.40 - Encephalopathy, unspecified Status: Acute Assessment and Plan: At baseline, continue abx (6) Advanced dementia: Onset Date: Unknown Code(s): F03.90 - Unspecified dementia without behavioral disturbance Status: Acute Assessment and Plan: patient's baseline continue donepezil 5mg po daily (7) Tremor: Onset Date: Unknown Code(s): R25.1 - Tremor, unspecified Status: Acute Assessment and Plan: continue home carbidopa levodopa DS: Summary Hospital Course Hospital Course: See above Status at Discharge Cognitive/behavioral status at discharge: Stable, improved. Time Spent with Patient Time attestation: Total time spent providing and/or coordinating discharge services: 43 Time spent: Greater than 30 minutes Exam Narrative: General: 80-year-old woman sitting up in the chair d
--- NOTE | 2020-12-25 17:31 | PM.PNGS ---
Progress Note: A&P Assessment and Plan (1) Cholangitis: Code(s): K83.09 - Other cholangitis Status: Acute Assessment and Plan: Doing well on postop day 2. drainage is serosanguineous from theJP drain today. Tolerating a low-fat diet today. since the drainage from the OSMANI was serosanguineous and only about 50 cc out since 7:00 a.m. this morning I went ahead and removed the drain with the patient's nurse present at approximately 4:30 p.m. today. New dressing of 2 x 2 Tegaderm were applied. ( This can be changed about once every 2-3 days as long as the tube A2 is a not saturated. Change p.r.n. at the long-term with the same dressing if the 2 x 2 become saturated. She could shower directly over this at the nursinghome if needed. Continue PT OT today and re-evaluate tomorrow. If patient continues to be very weak and needs maximum assist, she may require SNF or rehab placement while continuing to recover from surgery. Continue antibiotics per ID. White count normal today and remaining afebrile. (2) Choledocholithiasis: Onset Date: ~12/2020 Code(s): K80.50 - Calculus of bile duct without cholangitis or cholecystitis without obstruction Status: Acute Assessment and Plan: Cleared per ERCP and subsequent intraoperative cholangiogram. (3) Cholelithiasis: Onset Date: ~12/2020 Code(s): K80.20 - Calculus of gallbladder without cholecystitis without obstruction Status: Acute Assessment and Plan: now resolved in view of laparoscopic cholecystectomy. (4) Advanced dementia: Onset Date: Unknown Code(s): F03.90 - Unspecified dementia without behavioral disturbance Status: Acute Assessment and Plan: patient pleasantly confused, she is back on her usual medications for Alzheimer's. Recommend continued care and usual precautions regarding this. Additional Plan Plans for the patient's discharge including antibiotics due to her bacteremia recommended by ID service discussed with patient's hospitalist Michaela. Subjective Subjective Date/Time Seen: 12/25/20 17:31 Post Op day: 2 ( improving nicely with bilirubin down more) Patient reports: no new complaints, flatus and bowel movement Interval history: Patient lying in bed when I entered the room. Again she has good pleasantly confused. She cannot answer many questions. Nurse reports she is tolerating a low-fat soft diet. The nurse also reports she is not been able to get of bed and take steps or walk with PT. Therefore, family is planning on a short-stay [facility] for rehab. Review of Systems Review of Systems: ROS unobtainable: Yes unobtainable due to mental status ENT: Reports Normal hearing present Neurologic: Reports Normal hearing present and Reports confusion Psychiatric: Psychiatric: Reports confusion Exam Const: General: cooperative, no acute distress, well developed, alert, awake and confusion Nutritional Appearance: well nourished Orientation/consciousness: patient oriented x3 and confusion Limitations: altered mental status ( knows her name but does not know her location or date.) HENMT: Head: normal to inspection, normocephalic and atraumatic Ears: hearing grossly normal bilaterally General nose exam: Normal external nose present Face and sinus: normal facial exam Mouth: Yes Normal oral and palatal mucosa present, Yes tongue normal and Yes moist mucous membranes Eyes: General: appearance normal, both eyes and all related structures Pupils: Equal, round and reactive pupils present EOM: EOMs intact bilaterally Neck: Neck: normal visual inspection, no lymphadenopathy, trachea midline and supple Lymphatic: no lymphadenopathy noted Chest: Chest palpation & inspection: normal inspection of the chest Breast/axilla inspection: Other ( Breasts not examined.) GI: Inspection: normal to inspection, incision ( Intact with glue, slight serous drainage around OSMANI site.), scar
[2020-12-25] MEDS: SENNA/DOCUSATE SODIUM TABLET 2 TAB PO (20:14)
[2020-12-25 20:46] VITALS: BP 154/71; PULSE 65; RESP 20; TEMP 36.1; O2SAT 97
--- NOTE | 2020-12-25 23:03 | PC.NURSE ---
[facility] here for transport. Belongings & paperwork given to transport. [facility] Beba Quan RN & son notified of transport.
== END 2020-12-25 22:40 | DRG 854 ==
LOC: ANHED 22:05 → ANH3MED 22:45
PROVIDERS: Internal Medicine Gastroenterology; Nurse Practitioner; Surgery; Admitting Provider Internal Medicine; Emergency Provider Emergency Medicine; PCP Internal Medicine; Visit Provider Physician Assistant
PROC: 0FC98ZZ Extirpation of Matter from Common Bile Duct, Via Natural or Artificial Opening Endoscopic (ICD-10-PCS; CPT 43260; principal; 2020-12-22 15:45)
PROC: 0FT44ZZ Resection of Gallbladder, Percutaneous Endoscopic Approach (ICD-10-PCS; CPT 47562; principal; 2020-12-23 14:00)
DX: A41.59 Other Gram-negative sepsis (principal); K80.71 Calculus of gallbladder and bile duct without cholecystitis with obstruction; E87.2 Acidosis; G93.49 Other encephalopathy; R25.1 Tremor, unspecified; K57.10 Diverticulosis of small intestine without perforation or abscess without bleeding; D69.6 Thrombocytopenia, unspecified; F03.90 Unspecified dementia, unspecified severity, without behavioral disturbance, psychotic disturbance, mood disturbance, and anxiety; E86.0 Dehydration
CPT/HCPCS: 36415; 51701; 74177; 74300; 74329; 80048; 80053; 80076; 81001; 82150; 82948; 83605; 83690; 83735; 84484; 85025; 85027; 85055; 85610; 85730; 86850; 86900; 86901; 87040; 87077; 87186; 88304; 93005; 93306; 96361; 96365; 97110; 97161; 97165; 97530; 99203; 99285; A9270; G0378; G0463; J0330; J0743; J1100; J2001; J2405; J2543; J2704; J2710; J3010; J3475; J7030; J7040; J7120; Q9966; Q9967

== ENCOUNTER 2021-01-06 17:09 | Emergency (ER) | payer MEDICARE, SELFPAY ==
[2021-01-06] VITALS (8 sets, daily range): BP systolic 113–140; BP diastolic 64–75; PULSE 78–102; RESP 14–21; TEMP 36.2–36.6; O2SAT 96–100
[2021-01-06 18:30] LABS: Basophils Absolute Auto 0.1 K/mm3 (0.0-0.1); Basophils Percent Auto 1.3 % (0.2-1.2); Eosinophils Absolute Auto 0.1 K/mm3 (0-0.3); Eosinophils Percent Auto 2.2 % (0-4.4); Hematocrit 45.2 % (37.0-47.0); Hemoglobin 14.2 g/dL (12.0-15.0); Immature Granulocyte Absolute 0.03 K/mm3 (0.00-0.031); Immature Granulocyte Percent A 0.6 % (0-0.5); Lymphocytes Absolute Auto 1.67 K/mm3 (0.9-3.2); Lymphocytes Percent Auto 30.9 % (18.3-44.2); Mean Corpuscular HGB Conc 31.4 g/dl (32-36); Mean Corpuscular Hemoglobin 30.1 pg (26-34); Monocytes Absolute Auto 0.7 K/mm3 (0.1-0.6); Monocytes Percent Auto 12.6 % (2.6-8.5); Neutrophils Absolute Auto 2.8 K/mm3 (1.3-6.7); Neutrophils Percent Auto 52.4 % (45.5-73.1); Platelet Count Result 297 k/mm3 (150-375); Red Blood Count 4.71 M/mm3 (4.2-5.4); Red Cell Distribution Width 13.4 % (11.5-14.5); White Blood Count 5.4 K/mm3 (4.5-10.0)
[2021-01-06 18:45] LABS: Alanine Aminotransferase 23 U/L (4-35); Alkaline Phosphatase 52 U/L (38-126); Anion Gap 10 mmol/L (8-16); Aspartate Amino Transferase 30 U/L (14-36); Bilirubin,Total 0.8 mg/dL (0.2-1.3); Blood Urea Nitrogen 12 mg/dL (7-17); Carbon Dioxide 22 mmol/L (22-30); Chloride 106 mmol/L (98-107); Estimated CRCL calculation 56 ml/min; Estimated Glomerular Filt Rate > 60; Glucose 102 mg/dL (65-110); Lipase 36 U/L (23-300); Sodium 138 mmol/L (137-145)
[2021-01-07] VITALS (9 sets, daily range): BP systolic 131–145; BP diastolic 59–65; PULSE 73–86; RESP 12–19; O2SAT 99–100
[2021-01-07] MEDS: SODIUM CHLORIDE 0.9% IV 1,000 ML 999 ML IV CONT (00:12)
[2021-01-07 01:19] LABS: Add Urine Microscopic? YES; Appearance Urine Clear (Clear); Bilirubin Urine Negative (Negative); Blood Urine Negative (Negative); Color Urine Amber (Yellow); Glucose Urine UA Negative (Negative); Ketones Urine Negative (Negative); Leukocyte Esterase Ur Negative LEU/UL (Negative); Mucus Urine Few /lpf; Nitrate Urine Negative (Negative); Protein Urine 1+ mg/dL (Negative); Specific Grav Ur 1.027 (1.001-1.035); Squamous Epithelial Cell Urine Rare /hpf (Few); Urobilinogen Urine Negative mg/dL (<2.0); WBC Urine 0-3 /hpf
--- NOTE | 2021-01-07 02:10 | ED.NAVMDI ---
HPI - Nausea/Vomiting/Diarrhea General Chief complaint: Nausea/Vomiting/Diarrhea Stated complaint: nausea Time Seen by Provider: 01/06/21 22:56 History of Present Illness HPI Narrative: Patient is 80-year-old female who presents ER with family due to concerns for nausea and not eating. Patient recently was treated for cholangitis and choledocholithiasis. She underwent cholecystectomy. Patient finished her antibiotics yesterday. She had been discharged to a rehabilitation facility but family moved her out as they were only allowed Laisha visits. Son reports patient sporadically eats and is only had breakfast today. He reports that she will often complain of some nausea. No fevers documented at home. No recent falls. Reports he is constantly having to encourage her to eat and drink. Related Data Home Medications Medication Instructions Recorded Confirmed carbidopa-levodopa 25 - 100 tablet PO TID 12/19/20 12/20/20 donepezil 5 mg PO DAILY 12/19/20 12/20/20 metformin 1,000 mg PO BID 12/19/20 12/20/20 propranolol 60 mg PO DAILY 12/19/20 12/20/20 Allergies Allergy/AdvReac Type Severity Reaction Status Date / Time No Known Allergies Allergy Mild Verified 01/06/21 23:03 Review of Systems Review of Systems: ROS unobtainable: Yes unobtainable due to mental status PMFSH Past Medical History Medical History (Updated 01/07/21 @ 02:11 by Niraj Castañeda MD) Advanced dementia (Unknown) Cholangitis Choledocholithiasis (~12/2020) Cholelithiasis (~12/2020) Diabetes Sepsis Family History Family History Other Unknown family medical history Social History Social History Smoking status: Never smoker Alcohol intake: former Drinks per week: 2 Substance use: never Spiritual care concerns: No Exam Narrative: GENERAL: Well-appearing, well-nourished, and in no acute distress. HEAD: Normocephalic, atraumatic. EYES: PERRL and EOMI. CHEST: Clear to auscultation. No respiratory distress. HEART: Regular rate and rhythm. Normal peripheral pulses. ABDOMEN: Soft, nontender, nondistended. EXTREMITIES: Normal range of motion. No edema. SKIN: Warm, dry, no rash. NEURO: Alert and oriented x1. PSYCH: Normal mood and affect. Course Course Emergency Course: Unremarkable evaluation. Patient has been able nibble on some food. She is received IV fluids. Will discharge with supportive antiemetics. Vital Signs Vital signs: Vital Signs Temperature 97.9 F 01/06/21 17:59 Pulse Rate 101 H 01/06/21 17:59 Respiratory Rate 14 01/06/21 17:59 Blood Pressure 113/75 01/06/21 17:59 Pulse Oximetry 100 01/06/21 17:59 Temperature 97.2 F L 01/06/21 20:43 Pulse Rate 85 01/07/21 01:16 Respiratory Rate 12 01/07/21 01:16 Blood Pressure 145/59 H 01/07/21 01:16 Pulse Oximetry 99 01/07/21 01:16 MDM - Nausea/Vomiting/Diarrhea Lab Data Result diagrams: 01/06/21 18:18 01/06/21 18:18 Labs: Lab Results 01/06/21 01/06/21 01/07/21 Range/Units 18:18 18:18 00:59 WBC 5.4 (4.5-10.0) K/mm3 RBC 4.71 (4.2-5.4) M/mm3 Hgb 14.2 (12.0-15.0) g/dL Hct 45.2 (37.0-47.0) % MCV 96.0 (80-100) fl MCH 30.1 (26-34) pg MCHC 31.4 L (32-36) g/dl RDW 13.4 (11.5-14.5) % Plt Count 297 D (150-375) k/mm3 MPV 10.0 (7.4-10.4) fl Immature Gran % (Auto) 0.6 H (0-0.5) % Neut % (Auto) 52.4 (45.5-73.1) % Lymph % (Auto) 30.9 (18.3-44.2) % [place] % (Auto) 12.6 H (2.6-8.5) % Eos % (Auto) 2.2 (0-4.4) % Baso % (Auto) 1.3 H (0.2-1.2) % Lymph # (Auto) 1.67 (0.9-3.2) K/mm3 [place] # (Auto) 0.7 H (0.1-0.6) K/mm3 Eos # (Auto) 0.1 (0-0.3) K/mm3 Baso # (Auto) 0.1 (0.0-0.1) K/mm3 Abs Immat Gran (auto) 0.03 (0.00-0.031) K/mm3 Absolute Neuts (auto) 2.8 (1.3-6.7) K/mm3 Absolute Nucleated RBC 0.0 (0.0
== END 2021-01-07 02:46 | disposition home or self-care (01) ==
PROVIDERS: Emergency Medicine; Emergency Provider Emergency Medicine; PCP Internal Medicine
DX: R11.0 Nausea (principal); F03.90 Unspecified dementia, unspecified severity, without behavioral disturbance, psychotic disturbance, mood disturbance, and anxiety; E11.9 Type 2 diabetes mellitus without complications; Z90.49 Acquired absence of other specified parts of digestive tract; Z87.19 Personal history of other diseases of the digestive system; Z86.19 Personal history of other infectious and parasitic diseases
CPT/HCPCS: 36415; 51701; 80053; 81001; 83690; 85025; 96360; 99283; J7030